=== PATIENT | female | born 1970 | race Caucasian/White ===

== ENCOUNTER 2018-10-25 01:34 | Emergency (ER) | payer OTHER, SELFPAY ==
[2018-10-25 01:36] VITALS: BP 117/73; PULSE 83; RESP 12; TEMP 36.6; O2SAT 95; BMI 29.5
--- NOTE | 2018-10-25 01:50 | EKG12_ITS ---
Test Reason : ANXIETY Blood Pressure : / mmHG Vent. Rate : 073 BPM Atrial Rate : 073 BPM P-R Int : 148 ms QRS Dur : 076 ms QT Int : 416 ms P-R-T Axes : 027 028 045 degrees QTc Int : 458 ms Normal sinus rhythm Normal ECG Confirmed by ERNST BOB ([id number]), graphic editor PERI ALONZO ([id number]) on 10/29/2018 2:10:26 PM Referred By: NAVEEN Confirmed By:JUSTINE BOB
[2018-10-25] MEDS: 0.9% Normal Saline 1,000 ML 150 ML IV (02:01)
--- NOTE | 2018-10-25 02:05 | RAD_ITS ---
HISTORY: C/O ARMS TINGLING, HEART RACING. PT UNDER STRESS. EXAM:XR Chest 1 View portable COMPARISON: None FINDINGS: EKG leads in place. Normal heart and mediastinum. Lung volumes appear normal. No vascular congestion, pleural effusion, or acute pulmonary infiltration. No pneumothorax. The bony thorax appears intact. RAD/Chest 1 View (Portable) IMPRESSION: Normal chest. at 0222 Reported and signed by: Simba Medina MD Electronically Signed: Simba Medina, at 2:21 EDT Tel , Service support ,
[2018-10-25 02:11] LABS: Absolute Lymphocyte Count 1.97 X10^3/ul (0.83-4.51); Absolute Neutrophil Count 4.1 X10^3/uL (2.0-7.7); Basophil# 0.05 X10^3/uL; Basophil% 0.7 % (0-1); Eosinophil# 0.12 X10^3/uL; Eosinophils% 1.8 % (0-5); Hematocrit 38.7 % (37-47); Hemoglobin 13.8 g/dl (12.0-15.0); Lymphocyte # 1.97 X10^3/ul (4.0); Lymphocyte % 29.1 % (19-41); Mean Corp Hgb Conc 35.7 g/gl (32-36); Mean Corpuscular Volume 89.8 fL (81-99); Mean Platelet Vol. 8.8 fl (6.2-12.0); Monocyte# 0.54 X10^3/uL; Neutrophil # 4.08 X10^3/uL (2.7-7.7); Neutrophil % 60.3 % (47-70); POSITIVE COUNT NO; POSITIVE DIFFERENTIAL NO; POSITIVE MORPHOLOGY NO; Platelet Count 312 K/mm3 (150-450); RBC Distribution Width CV 11.5 % (11.6-14.6); RBC Distribution Width SD 36.8 fl (35.1-43.9); Red Blood Count 4.31 M/mm3 (4.2-5.4); White Blood Count 6.8 K/mm3 (4.4-11.0)
[2018-10-25 02:16] LABS: D-Dimer Quantitative (DVT/PE) < 0.27 FEU/ug/m (0.27-0.49)
--- NOTE | 2018-10-25 02:19 | ED.VISSUMM ---
- ER Visit Summary Date of Service: 10/25/18 Chief Complaint: Arms tingling, heart racing History of Present Illness: The patient is a 48 F with history of anxiety and thyroid nodules. Patient states she gets panic attacks once every 2 or 3 months. Tonight around 11 PM she felt anxious. She states her heart was racing and her chest felt heavy. She did have some pain and tingling in her left arm. She took Xanax which usually helps her sleep but states symptoms did not improve tonight. She does note increased stress recently with multiple deaths in the family. No recent change in caffeine intake. Physical Examination: Vital signs unremarkable. Patient sitting upright in bed no acute distress. Head neck examination normal. Heart is regular rate and rhythm. Lung sounds are clear. Abdomen is soft nontender. Test Results: EKG is sinus at 73 with no sign of acute ischemia. Portable chest x-ray is normal. CBC and chemistry studies are normal. Troponin and d-dimer are both negative. TSH is normal at 2.68. Emergency Department Course and Treatment: Patient had taken Xanax early before arrival. She was not given any further medication while here. On repeat evaluation she is resting comfortably does feel improved. Treatment Plan: [] Disposition: Discharge Impression: Anxiety, improved This note was generated with [employer] dictation software. It may contain incorrect words, spelling, and punctuation that were not noted in review of the chart prior to signing ED Disposition - Plan for ED Patient: Disposition: Home or Assisted Living Instructions: ED Panic Attack Referrals: Aubrey Barrow DO [Primary Care Provider] - 1-2 Days if not improving
[2018-10-25 02:30] LABS: Anion Gap 8 (5-15); BUN 18 mg/dL (7-18); BUN/Creat Ratio 22.2 RATIO (10-20); Calcium,Total 8.5 mg/dL (8.5-10.1); Chloride 108 mmol/L (98-107); Creatinine, Serum 0.81 mg/dL (0.55-1.02); EST Glomerular Filtration Rate 80 mL/min (>60); Est Glom Filt Rate - Afr Amer 97 mL/min (>60); Estimated Creatinine Clearance 74.14 ml/min; Glucose 106 mg/dL (74-106); Potassium 3.8 mmol/L (3.5-5.1); Sodium Level 139 mmol/L (136-145); Thyroid Stim Hormone (TSH) 2.68 uIU/mL (0.358-3.74)
[2018-10-25 03:00] VITALS: BP 109/76; PULSE 74; RESP 14; O2SAT 95
== END 2018-10-25 03:03 | disposition home or self-care (01) ==
PROVIDERS: Emergency Provider Emergency Medicine; Family Provider Family Medicine; PCP Family Medicine
DX: F41.9 Anxiety disorder, unspecified (principal); E04.2 Nontoxic multinodular goiter
CPT/HCPCS: 71045; 80048; 84443; 84484; 85025; 85379; 93005; 96360; 99284; J7030; A4216

== ENCOUNTER → 2019-05-06 13:22 | Outpatient (CLI) | payer OTHER, SELFPAY ==
[2019-04-24 15:24] VITALS: BMI 29.0
--- NOTE | 2019-05-06 13:24 | CT_ITS ---
STUDY: CT BRAIN WITH AND WITHOUT CONTRAST REASON FOR EXAM: Female, 48 years old. ANISOCORIA RADIATION DOSAGE (If Supplied By Facility): CTDIvol = ( 44.99 ) mGy, DLP = ( 1479.73 ) mGycm TECHNIQUE: Transaxial CT imaging of the brain was performed pre and post contrast administration. The examination was performed with intravenous administration of IV Isovue 370 50. Individualized dose optimization techniques were used for this CT. COMPARISON: None. FINDINGS: Normal soft tissue structures. Normal calvarium. Normal size ventricles and extra-axial spaces for the patient's age. Normal white matter tracts of the cerebral hemispheres. Normal basal ganglia and thalami. Normal brainstem. Normal cerebellum. There is no intracranial hemorrhage. There are no findings of an acute ischemic infarction. Normal visualized paranasal sinuses. CT/Brain/Head W/WO Contrast IMPRESSION: Normal unenhanced and enhanced CT scan of the brain. Electronically Signed: Corin Penn MD at 1:23 EST , Service support ,
== END ==
PROVIDERS: Family Provider Family Medicine; PCP Family Medicine; Referring Provider Internal Medicine; Visit Provider Internal Medicine
DX: H57.02 Anisocoria (principal)
CPT/HCPCS: 70470; Q9967; A4216

== ENCOUNTER → 2020-12-02 15:59 | Outpatient (CLI) | payer OTHER, SELFPAY ==
[2020-12-02 14:56] VITALS: BMI 29.0
[2020-12-02 16:32] LABS: Absolute Lymphocyte Count 1.42 X10^3/uL (0.83-4.51); Absolute Neutrophil Count 3.6 X10^3/uL (2.0-7.7); Basophil# 0.04 X10^3/uL; Basophil% 0.7 % (0-1); Eosinophil# 0.03 X10^3/uL; Eosinophils% 0.5 % (0-5); Hematocrit 40.2 % (37-47); Hemoglobin 13.8 g/dL (12.0-15.0); Lymphocyte # 1.42 X10^3/ul (0.83-4.51); Lymphocyte % 25.9 % (19-41); Mean Corp Hgb Conc 34.3 g/dL (32-36); Mean Corpuscular Hgb 31.3 pg (27.0-32.0); Mean Corpuscular Volume 91.2 fL (81-99); Mean Platelet Vol. 9.1 fl (6.2-12.0); Monocyte# 0.39 X10^3/uL; Monocyte% 7.1 % (0-10); NRBC Flagged by Analyzer 0 % (0-5); Neutrophil # 3.58 X10^3/uL (2.7-7.7); Neutrophil % 65.4 % (47-70); Platelet Count 386 K/mm3 (150-450); RBC Distribution Width CV 11.6 % (11.6-14.6); RBC Distribution Width SD 38.5 fl (35.1-43.9); Red Blood Count 4.41 M/mm3 (4.2-5.4); White Blood Count 5.5 K/mm3 (4.4-11.0)
[2020-12-02 17:12] LABS: ALB/GLOB Ratio 1.1 RATIO (0.9-2.4); AST(SGOT) 17 U/L (15-37); Alanine Aminotransfer ALT/SGPT 20 U/L (13-56); Albumin, Serum 4.1 g/dL (3.2-5.0); Alkaline Phosphatase 45 U/L (45-117); Anion Gap 8 (5-15); BUN 8 mg/dL (7-18); BUN/Creat Ratio 9.1 RATIO (10-20); Calcium,Total 8.7 mg/dL (8.5-10.1); Chloride 106 mmol/L (98-107); Cholesterol 185 mg/dL (200); Creatinine, Serum 0.88 mg/dL (0.55-1.02); EST Glomerular Filtration Rate 73 mL/min (>60); Est Glom Filt Rate - Afr Amer 88 mL/min (>60); Globulin 3.7 g/dL (2.2-4.2); Glucose 85 mg/dL (74-106); High Density Lipoprotein 48 mg/dL; Potassium 3.6 mmol/L (3.5-5.1); Protein, Total 7.8 g/dL (6.4-8.2); Sodium Level 139 mmol/L (136-145); Thyroid Stim Hormone (TSH) 0.88 uIU/mL (0.358-3.74); Triglycerides 116 mg/dL; Very Low Density Lipoprotein 23 mg/dL (5-40)
[2020-12-02 17:43] LABS: Vitamin B12 321 pg/mL (211-911); Vitamin D,25 Hydroxy 23.6 ng/mL
== END ==
PROVIDERS: PCP Family Medicine; Referring Provider Nurse Practitioner Family; Visit Provider Nurse Practitioner Family
DX: D64.9 Anemia, unspecified (principal); F32.9 Major depressive disorder, single episode, unspecified; F41.9 Anxiety disorder, unspecified; E56.9 Vitamin deficiency, unspecified
CPT/HCPCS: 36415; 80053; 80061; 82306; 82607; 84443; 85025

== ENCOUNTER → 2020-12-18 11:49 | Outpatient (CLI) | payer OTHER, SELFPAY ==
[2020-12-02 14:56] VITALS: BMI 29.0
--- NOTE | 2020-12-18 11:51 | BI_ITS ---
MAMMOGRAPHY - BILATERAL SCREENING 3-D TOMOSYNTHESIS REASON FOR EXAM: Female, 50 years old. Z12.39 - Encounter for other screening for malignant neoplasm of breast PERTINENT HISTORY: No significant family history. TECHNIQUE: 2-D mammograms and 3-D Tomosynthesis of the breast (s) were performed. CAD was performed. COMPARISON: 08/16/2012. FINDINGS: The breast composition is of heterogeneous relatively dense fibroglandular tissue that may lower down the sensitivity of mammography Scattered benign calcifications are seen. No dense spiculated masses or suspicious microcalcifications are identified. No architectural distortion is identified. There is no skin thickening or nipple retraction. There has been no significant change since the prior study the density of the fibroglandular tissue is more than seen before I recommend ultrasound for better assessment BI/SCRN MAMM (CAD)W/KAYCEE BILAT IMPRESSION: There is relatively dense heterogeneous fibroglandular tissue that needs further assessment by ultrasound BIRADS -0. FOLLOW UP RECOMMENDATION: Yearly follow up mammogram recommended. (A) Approximately 10% of breast cancers are not detected by mammography. A normal mammogram should not delay biopsy of a clinically suspicious abnormality. Electronically Signed: Suhail Liang, at 14:24 EDT Tel , Service support ,
== END ==
PROVIDERS: PCP Family Medicine; Referring Provider Nurse Practitioner Family; Visit Provider Nurse Practitioner Family
DX: Z12.31 Encounter for screening mammogram for malignant neoplasm of breast (principal)
CPT/HCPCS: 77063; 77067

== ENCOUNTER → 2020-12-25 13:09 | Outpatient (CLI) | payer OTHER, SELFPAY ==
[2020-12-02 14:56] VITALS: BMI 29.0
--- NOTE | 2020-12-25 13:11 | US_ITS ---
STUDY: ULTRASOUND BREAST - RIGHT REASON FOR EXAM: Female, 50 years old. Abnormal screening mammogram. TECHNIQUE: Axial and longitudinal images of the RIGHT breast were performed with a high resolution ultrasound transducer. # OF IMAGES: 30 COMPARISON: Comparison is made with prior mammogram dated 12/18/2020. FINDINGS: RIGHT Breast: The upper outer aspect of the right breast was examined by ultrasound. There is a 5 mm x 5 mm x 5 mm cyst at the 9 o''clock position of the breast at 6 cm from the nipple. US/Breast Limited Unilateral IMPRESSION: 5 mm x 5 mm x 5 mm cyst is seen at 9 o''clock position of the breast 6 cm from nipple. ASSESSMENT CATEGORY: BIRADS Category 2: Benign. A letter regarding these results will be sent to the patient by the facility within 30 days. Electronically Signed: Esdras Cervantes MD at 14:34 EDT , Service support ,
== END ==
PROVIDERS: PCP Family Medicine; Referring Provider Nurse Practitioner Family; Visit Provider Nurse Practitioner Family
DX: N60.01 Solitary cyst of right breast (principal)
CPT/HCPCS: 76642

== ENCOUNTER → 2022-04-21 | Outpatient (CLI) | payer OTHER, SELFPAY ==
[2022-04-21 15:20] LABS: Absolute Lymphocyte Count 1.37 X10^3/uL (0.83-4.51); Absolute Neutrophil Count 3.5 X10^3/uL (2.0-7.7); Basophil# 0.04 X10^3/uL; Basophil% 0.8 % (0-1); Eosinophil# 0.05 X10^3/uL; Hematocrit 42.1 % (37-47); Lymphocyte # 1.37 X10^3/ul (0.83-4.51); Lymphocyte % 26.1 % (19-41); Mean Corp Hgb Conc 35.6 g/dL (32-36); Mean Corpuscular Hgb 33.2 pg (27.0-32.0); Mean Corpuscular Volume 93.1 fL (81-99); Mean Platelet Vol. 9.5 fl (6.2-12.0); Monocyte% 5.7 % (0-10); NRBC Flagged by Analyzer 0 % (0-5); Neutrophil # 3.47 X10^3/uL (2.7-7.7); Platelet Count 401 K/mm3 (150-450); RBC Distribution Width CV 11.8 % (11.6-14.6); RBC Distribution Width SD 40.3 fl (35.1-43.9); Red Blood Count 4.52 M/mm3 (4.2-5.4); White Blood Count 5.3 K/mm3 (4.4-11.0)
[2022-04-21 15:36] LABS: Vitamin B12 252 pg/mL (211-911); Vitamin D,25 Hydroxy 25.8 ng/mL
[2022-04-21 15:43] LABS: ALB/GLOB Ratio 1.1 RATIO (0.9-2.4); AST(SGOT) 15 U/L (15-37); Alanine Aminotransfer ALT/SGPT 23 U/L (13-56); Albumin, Serum 3.9 g/dL (3.2-5.0); Alkaline Phosphatase 52 U/L (45-117); Anion Gap 6 (5-15); BUN 7 mg/dL (7-18); BUN/Creat Ratio 7.9 RATIO (10-20); Calcium,Total 9.1 mg/dL (8.5-10.1); Chloride 108 mmol/L (98-107); Cholesterol 178 mg/dL (200); Creatinine, Serum 0.89 mg/dL (0.55-1.02); EST Glomerular Filtration Rate 71 mL/min (>60); Est Glom Filt Rate - Afr Amer 86 mL/min (>60); Globulin 3.7 g/dL (2.2-4.2); Glucose 96 mg/dL (74-106); High Density Lipoprotein 43 mg/dL; Protein, Total 7.6 g/dL (6.4-8.2); Sodium Level 139 mmol/L (136-145); Thyroid Stim Hormone (TSH) 0.82 uIU/mL (0.358-3.74); Triglycerides 114 mg/dL; Very Low Density Lipoprotein 23 mg/dL (5-40)
[2022-04-21 17:32] LABS: Internal QC Validated? YES +Cl - CLEAR BKGD; Pregnancy, Serum, hCG Quali. NEGATIVE Negative
== END | disposition home or self-care (01) ==
LOC: BIMLAB 12:06
PROVIDERS: PCP Family Medicine; Referring Provider Nurse Practitioner Family; Visit Provider Nurse Practitioner Family
DX: F41.9 Anxiety disorder, unspecified (principal); F32.9 Major depressive disorder, single episode, unspecified; E56.9 Vitamin deficiency, unspecified; D64.9 Anemia, unspecified; N64.4 Mastodynia
CPT/HCPCS: 36415; 80053; 80061; 82306; 82607; 84443; 84703; 85025

== ENCOUNTER 2022-05-18 09:20 | Outpatient (CLI) | payer OTHER, SELFPAY ==
--- NOTE | 2022-05-18 09:22 | BI_ITS ---
MAMMOGRAPHY - BILATERAL DIAGNOSTIC REASON FOR EXAM: Female, 51 years old bilateral breast pain. Pain resolved prior to this study. PERTINENT HISTORY: Non-contributory. TECHNIQUE: 2-D mammograms and 3-D Tomosynthesis of the breast (s) were performed. CAD was performed. COMPARISON: December 18, 2020. FINDINGS: Breast Composition: The breasts are heterogeneously dense, which may obscure small masses. There are no dominant masses or suspicious calcifications. Normal axillary lymph nodes. BI/DIAG MAMM W/CAD, BILAT IMPRESSION: Negative diagnostic mammogram. Yearly followup recommended. Yearly follow-up screening mammogram recommended. ASSESSMENT CATEGORY: BIRADS Category 2: Benign. A letter regarding these results will be sent to the patient by the facility within 30 days. FOLLOW UP RECOMMENDATION: Yearly follow up mammogram recommended. (A) Approximately 10% of breast cancers are not detected by mammography. A normal mammogram should not delay biopsy of a clinically suspicious abnormality. Electronically Signed: Timtohy Cardenas, at 10:15 EST ,
== END 2022-05-18 23:59 | disposition home or self-care (01) ==
PROVIDERS: PCP Family Medicine; Referring Provider Nurse Practitioner Family; Visit Provider Nurse Practitioner Family
DX: Z12.31 Encounter for screening mammogram for malignant neoplasm of breast (principal); N64.4 Mastodynia
CPT/HCPCS: 77062; 77066; G0279

== ENCOUNTER 2022-10-14 18:21 | Emergency (ER) | payer OTHER, SELFPAY ==
[2022-10-14 18:21] VITALS: BP 121/88; PULSE 86; RESP 16; TEMP 36.6; O2SAT 98; BMI 33.4
[2022-10-14 19:01] VITALS: O2SAT 97
--- NOTE | 2022-10-14 19:01 | EKG12_ITS ---
Test Reason : CP Blood Pressure : / mmHG Vent. Rate : 080 BPM Atrial Rate : 080 BPM P-R Int : 150 ms QRS Dur : 078 ms QT Int : 396 ms P-R-T Axes : 017 010 045 degrees QTc Int : 456 ms Normal sinus rhythm Normal ECG Confirmed by LEN BHATIA, REINALDO ([id number]), editor farm journal LEIGH ORELLANA ([id number]) on 10/17/2022 11:05:23 AM Referred By: TELLY Confirmed By:REINALDO HARRINGTON MD
--- NOTE | 2022-10-14 19:02 | EDS_ITS ---
HPI History of Present Illness Chief Complaint: Chest Pain Informant: patient Onset/Context/Timing Onset: Weeks Timing: Intermittent Quality: Positive for Tightness Narrative Narrative: Patient presents with intermittent tightness across her chest for the past couple weeks. She has a strong family history of heart disease and was concerned so she came in for evaluation. No significant shortness of breath. [facility] Medical History Anemia Back problem Dense breast tissue Migraine Pain of both breasts Tension headache UTI (urinary tract infection) Vitamin deficiency Home Medications alprazolam 0.25 mg tablet (Xanax) 0.25 mg PO DAILY PRN anxiety #20 tabs 04/21/22 [Rx Last Taken Unknown] carboxymethylcellulose-citric acid 0.75 gram capsule (Plenity (Welcome Kit)) 3 cap PO BID #540 caps 04/21/22 [Rx Last Taken Unknown] citalopram 20 mg tablet 20 mg PO DAILY #90 tabs 04/21/22 [Rx Last Taken Unknown] clotrimazole-betamethasone 1 %-0.05 % topical cream 1 applic topical BID #45 grams 04/21/22 [Rx Last Taken Unknown] omeprazole 20 mg capsule,delayed release 20 mg PO DAILY #90 caps 04/21/22 [Rx Last Taken Unknown] cholecalciferol (vitamin D3) 50 mcg (2,000 unit) capsule 50 mcg PO DAILY 04/22/22 [History Last Taken Unknown] Allergy/AdvReac Type Severity Reaction Status Date / Time Penicillins Allergy Unknown Rash Verified 04/21/22 11:01 amoxicillin Allergy Rash Verified 04/21/22 11:01 latex Allergy Rash Verified 04/21/22 11:01 Family History Other Anxiety Breast cancer CVA (cerebral vascular accident) Cancer Depression Diabetes Heart disease Surgical History history hemmorrhoid surgery Social History Smoking Status: Former smoker alcohol intake: current alcohol intake frequency: holidays/special occasions only substance use type: does not use what type of physical activity do you participate in: none ROS ROS ED Constitutional Constitutional ED: Denies chills or fever(s) Eyes Eyes: Denies discharge from eye(s) ENT ENT ED: Denies discharge from eye(s), rhinorrhea or sore throat Cardiovascular Cardiovascular: Reports chest pain; Denies palpitations Respiratory/Chest Respiratory/Chest: Denies cough or dyspnea Gastrointestinal Gastrointestinal: Denies abdominal pain, nausea or vomiting Genitourinary Genitourinary ED: Denies dysuria Musculoskeletal Musculoskeletal: Denies back pain or extremity pain Integumentary Denies Abrasions or rash Neurologic Neurologic: Denies headache(s) or weakness Psychiatric Psychiatric: Reports anxiety; Denies depression Allergic/Immunologic Allergic/Immunologic ED: Denies lip swelling or urticaria EXAM Physical Exam Const Vital Signs: 10/14/22 18:21 10/14/22 19:28 10/14/22 19:01 Temperature 97.8 F Temperature Source Temporal Pulse Rate 86 82 Respiratory Rate 16 19 H Blood Pressure 121/88 H 120/83 H Blood Pressure Mean 99 95 Pulse Ox 98 97 97 Oxygen Delivery Method Room Air Room Air Room Air 10/14/22 20:20 Temperature Temperature Source Pulse Rate 75 Respiratory Rate 17 Blood Pressure 107/72 Blood Pressure Mean 83 Pulse Ox 97 Oxygen Delivery Method Room Air Positive well nourished and well developed General Appearance ED: well developed HEENT Reports normocephalic and head/scalp atraumatic Eyes PERRL and EOMs intact bilaterally Neck supple Chest Wall inspection of chest normal and palpation of chest normal Resp normal respiratory effort and clear to auscultation bilaterally Cardio regular rate and regular rhythm GI normal to inspection, nondistended, normoactive bowel sounds Palpation: soft Extremity normal to inspection Neuro oriented x3 and no sensory deficits noted Sensorium / Orientation: alert Motor Exam: strength 5/5 throughout Psych Mood & Affect: anxious Skin no rashes or lesions noted Heart Score History: Slightly/Non-Suspicious ECG: Normal Age: >45 - <65 years Risk Factors: No Risk Factors Troponin: </= Normal Limit Score: 1 MDM MDM MDM Narrative Medical decision making narrative: Patient placed on monitoring tech. Patient given 4 baby aspirin. Labwork obtained to evaluate for leukocytosis, anemia, and electrolyte derangement. EKG obtained to evaluate for cardiac arrhythmia/ischemia. Chest x-ray obtained to evaluate for acute lung pathology, cardiac size, or mediastinal abnormality. Lab Data Attestation: I reviewed the patient's lab results. Labs: Laboratory Results - last 24 hr 10/14/22 10/14/22 10/14/22 19:01 19:01 19:01 WBC 7.4 RBC 4.60 Hgb 14.7 Hct 42.8 MCV 93.0 MCH 32.0 MCHC 34.3 RDW Std Deviation 40.0 RDW Coeff of Javier 11.8 Plt Count 321 MPV 10.2 Immature Gran % (Auto) 0.300 Neut % (Auto) 63.2 Lymph % (Auto) 27.6 Major % (Auto) 6.6 Eos % (Auto) 1.5 Baso % (Auto) 0.8 Absolute Neuts (auto) 4.7 Absolute Lymphs (auto) 2.04 Nucleated RBC % 0 Differential Comment SCANNED D-Dimer Quant (PE/DVT) 0.30 Sodium 137 Potassium 3.8 Chloride 107 Carbon Dioxide 25.0 Anion Gap 5 BUN 10 Creatinine 0.88 Estim Creat Clear Calc 65.31 Est GFR (MDRD) Af Amer 87 Est GFR (MDRD) Non-Af 72 BUN/Creatinine Ratio 11.4 Glucose 97 Calcium 9.9 Troponin I High Sens < 3 L Radiography Chest X-Ray - ED: 1 View, Read by ED Physician, Normal, Heart, Lungs and Mediastinum Diagnostic Testing: Clinical Impression(s) from Imaging Studies Chest X-Ray 10/14/22 19:06 IMPRESSION: No acute cardiopulmonary disease or interval change. Electronically Signed: Song Madden DO at 19:24 EDT Reading Location ID and State: [address] [place] [address] Tel [phone], Service support , EKG Initial EKG: Attestation: I personally reviewed and interpreted this EKG as follows: Interpretation: Sinus Rhythm (Sinus at 80 with no acute ischemia.) Differential Diagnosis Chest pain/SOB: pulmonary embolism Reason(s) PE less likely: Positive for D- Dimer negative, not tachycardic and not hypoxic, ACS ACS: Positive for no evidence of ACS based on cardiac biomarkers and EKG without ischemia and pneumothorax Reason(s) pneumothorax less likely: Positive for bilateral breath sounds and MEDICAL ADVISOR withhout PTX Treatment and Re-Evaluation :: On repeat evaluation patient resting comfortably. CBC and chemistry studies are unremarkable. Troponin is normal at less than 3 and D-dimer is normal at 0.3. Chest x-ray per my interpretation reveals no acute abnormalities. EKG reveals no ischemia. Patient advised of the test results. I did recommend she follow- up with her primary care physician, but at this time I see no evidence of ACS, pulmonary embolism, or pneumothorax. Family does raise concern about her blood pressure being higher than she normally runs. I recommended obtaining a blood pressure cuff and keeping a journal at home and reviewing this with her primary care physician at follow-up. Discharge Plan Triage Chief Complaint: Chest Pain ED Provider: Natalie Conner Dx/Rx/DC Orders Clinical Impression: Atypical chest pain Instructions: ED Chest Pain, Uncertain Cause Prescriptions: No Action omeprazole 20 mg capsule,delayed release(DR/EC) 20 mg PO DAILY Qty: 90 1RF citalopram 20 mg tablet 20 mg PO DAILY Qty: 90 3RF alprazolam [Xanax] 0.25 mg tablet 0.25 mg PO DAILY PRN (Reason: anxiety) Qty: 20 0RF clotrimazole-betamethasone 1-0.05 % cream 1 applic topical BID Qty: 45 3RF Plenity (Welcome Kit) 0.75 gram capsule 3 cap PO BID Qty: 540 3RF Rx Instructions: administer 30 min before lunch and evening meal/dinner with full glass of water cholecalciferol (vitamin D3) 50 mcg (2,000 unit) capsule 50 mcg PO DAILY Primary Care Provider: Corby Moy Referrals: Corby Moy, [Primary Care Provider] - 1 Week Disposition Disposition: Home, Self Care
--- NOTE | 2022-10-14 19:06 | RAD_ITS ---
STUDY: X-RAY CHEST REASON FOR EXAM: Female, 52 years old. Chest pain and tightness intermittently for weeks. TECHNIQUE: Single AP portable view of the chest. COMPARISON: October 25, 2018. FINDINGS: The lungs are clear and expanded. There is no demonstrated pleural abnormality. Normal size heart. Normal mediastinum and evan. Normal visualized pulmonary arteries. Normal visualized aortic arch and descending thoracic aorta. Normal visualized thoracic spine. Normal visualized ribs, clavicles, and shoulders. There is no demonstrated abnormality of the visualized soft tissue structures of the upper abdomen. RAD/Chest 1 View (Portable) IMPRESSION: No acute cardiopulmonary disease or interval change. Electronically Signed: Song Madden DO at 19:24 EDT ,
[2022-10-14] MEDS: Aspirin 81 MG TAB.CHEW 324 MG PO (19:25)
[2022-10-14 19:28] VITALS: BP 120/83; PULSE 82; RESP 19; O2SAT 97
[2022-10-14 19:30] LABS: Absolute Lymphocyte Count 2.04 X10^3/uL (0.83-4.51); Absolute Neutrophil Count 4.7 X10^3/uL (2.0-7.7); Basophil# 0.06 X10^3/uL; Basophil% 0.8 % (0-1); Differential Indicated SCAN CRITERIA MET; Eosinophil# 0.11 X10^3/uL; Eosinophils% 1.5 % (0-5); Hematocrit 42.8 % (37-47); Hemoglobin 14.7 g/dL (12.0-15.0); Lymphocyte # 2.04 X10^3/ul (0.83-4.51); Lymphocyte % 27.6 % (19-41); Mean Corp Hgb Conc 34.3 g/dL (32-36); Mean Platelet Vol. 10.2 fl (6.2-12.0); Monocyte# 0.49 X10^3/uL; Monocyte% 6.6 % (0-10); NRBC Flagged by Analyzer 0 % (0-5); Neutrophil # 4.68 X10^3/uL (2.7-7.7); Neutrophil % 63.2 % (47-70); POSITIVE COUNT YES; Platelet Count 321 K/mm3 (150-450); RBC Distribution Width CV 11.8 % (11.6-14.6); White Blood Count 7.4 K/mm3 (4.4-11.0)
[2022-10-14 20:14] LABS: Anion Gap 5 (5-15); BUN 10 mg/dL (7-18); BUN/Creat Ratio 11.4 RATIO (10-20); Calcium,Total 9.9 mg/dL (8.5-10.1); Chloride 107 mmol/L (98-107); Creatinine, Serum 0.88 mg/dL (0.55-1.02); EST Glomerular Filtration Rate 72 mL/min (>60); Est Glom Filt Rate - Afr Amer 87 mL/min (>60); Estimated Creatinine Clearance 65.31 ml/min; Glucose 97 mg/dL (74-106); Potassium 3.8 mmol/L (3.5-5.1); Sodium Level 137 mmol/L (136-145); Troponin-I HS < 3 pg/mL (3.0-54.0)
[2022-10-14 20:15] LABS: Differential Comment SCANNED
[2022-10-14 20:20] VITALS: BP 107/72; PULSE 75; RESP 17; O2SAT 97
[2022-10-14 21:05] VITALS: BP 123/84; PULSE 76; RESP 12; O2SAT 97
== END 2022-10-14 21:06 | disposition home or self-care (01) ==
PROVIDERS: Emergency Provider Emergency Medicine; PCP Family Medicine; Visit Provider Emergency Medicine
DX: R07.89 Other chest pain (principal); Z87.891 Personal history of nicotine dependence
CPT/HCPCS: 71045; 80048; 84484; 85025; 85379; 93005; 99284

== ENCOUNTER 2022-12-19 10:54 | Emergency (ER) | payer OTHER, SELFPAY ==
[2022-12-19 10:54] VITALS: BP 112/69; PULSE 92; RESP 18; TEMP 36.3; O2SAT 99; BMI 30.9
--- NOTE | 2022-12-19 11:08 | VDLE_ITS ---
Reason For Study: Rt Leg Pain RIGHT LEFT GSV is normal. CFV is compressible, spontaneous, phasic, CFV is compressible, spontaneous, phasic, competent, and demonstrates normal competent and demonstrates normal augmentation. augmentation. FV is compressible, spontaneous, phasic, competent and demonstrates normal augmentation. POP V is compressible, spontaneous, phasic, competent and demonstrates normal augmentation. T/P Trunk is compressible. Acute deep vein thrombosis is noted in the PTV. It is dilated and NONCOMPRESSIBLE. Acute deep vein thrombosis is noted in the Per V. It is dilated and NONCOMPRESSIBLE. Procedure This is a venous duplex using B-mode, color flow and spectral Doppler. Exam performed portable in ED. The exam was diagnostic. A preliminary report was called and/or faxed to Dr. Cortes. VL/Venous Duplex US, Unilateral Interpretation Summary Acute deep venous thrombosis right posterior tibial and peroneal veins. Patent and compressible right great saphenous vein. Normal flow patterns left common femoral vein. Ordering Physician: Wil Cortes Referring Physician: Jeison Moy M.D. Performed By: Dennis Morales RVT
--- NOTE | 2022-12-19 11:09 | ED.VIS.LOWEX ---
HPI History of Present Illness Chief Complaint: Lower Extremity Injury Informant: patient Narrative Narrative: Patient presents concerned she may have developed a DVT in her right leg. She has a foot fracture and a tall walking boot on, and she just drove with family to [place] and back, and in route she developed swelling all the way up to her knee, and she has been having cramping in her calf for the last several days. The swelling is better now, but the cramping is still there. She has no chest pain, shortness of breath, palpitations, lightheadedness or syncope, and she has never had a history of DVT or PE in the past she takes no aspirin or anticoagulants for any reason. [facility] Medical History Anemia Back problem Dense breast tissue Migraine Pain of both breasts Tension headache UTI (urinary tract infection) Vitamin deficiency Home Medications alprazolam 0.25 mg tablet (Xanax) 0.25 mg PO DAILY PRN anxiety #20 tabs 04/21/22 [Rx Last Taken Unknown] carboxymethylcellulose-citric acid 0.75 gram capsule (Plenity (Welcome Kit)) 3 cap PO BID #540 caps 04/21/22 [Rx Last Taken Unknown] citalopram 20 mg tablet 20 mg PO DAILY #90 tabs 04/21/22 [Rx Last Taken Unknown] clotrimazole-betamethasone 1 %-0.05 % topical cream 1 applic topical BID #45 grams 04/21/22 [Rx Last Taken Unknown] omeprazole 20 mg capsule,delayed release 20 mg PO DAILY #90 caps 04/21/22 [Rx Last Taken Unknown] cholecalciferol (vitamin D3) 50 mcg (2,000 unit) capsule 50 mcg PO DAILY 04/22/22 [History Last Taken Unknown] apixaban 5 mg (74 tabs) tablets in a dose pack (Eliquis DVT-PE Treat 30D Start) 5 mg PO BID #74 tabs 12/19/22 [Rx Last Taken Unknown] Allergy/AdvReac Type Severity Reaction Status Date / Time Penicillins Allergy Unknown Rash Verified 04/21/22 11:01 amoxicillin Allergy Rash Verified 04/21/22 11:01 latex Allergy Rash Verified 04/21/22 11:01 Family History Other Anxiety Breast cancer CVA (cerebral vascular accident) Cancer Depression Diabetes Heart disease Surgical History history hemmorrhoid surgery Social History Smoking Status: Former smoker alcohol intake: current alcohol intake frequency: holidays/special occasions only substance use type: does not use what type of physical activity do you participate in: none ROS ROS ED Constitutional Constitutional ED: Denies chills or fever(s) Cardiovascular Cardiovascular: Denies chest pain, lightheadedness, palpitations, racing heartbeat or syncope Respiratory/Chest Respiratory/Chest: Denies dyspnea or dyspnea on exertion Musculoskeletal Musculoskeletal: Reports as per HPI, extremity pain and other Details: RLE swelling ; Denies neck pain Integumentary Denies Abrasions, rash or wounds Neurologic Neurologic: Denies paresthesias or weakness EXAM Physical Exam Const Vital Signs: 12/19/22 10:54 Temperature 97.3 F L Temperature Source Temporal Pulse Rate 92 Respiratory Rate 18 Blood Pressure 112/69 Blood Pressure Mean 83 Pulse Ox 99 Oxygen Delivery Method Room Air Positive well nourished and well developed General Appearance ED: well developed and NAD Neck full ROM and supple Back/Spine normal ROM and normal to inspection Extremity normal to inspection and full ROM Extremity Narrative: There is some mild calf tenderness no palpable cords, there is maybe a trace amount of edema in the ankle, but grossly no asymmetry in the calves. No tenderness in the popliteal space or the thighs. Neurovascular intact distally. Neuro oriented x3, no focal motor deficits and no sensory deficits noted Sensorium / Orientation: alert Psych mental status grossly normal and thought process normal Skin no wounds Rashes: no rashes MDM MDM MDM Narrative Medical decision making narrative: Obtained duplex ultrasound of the right lower extremity, discussed with the prosthetics lab technician preliminary interpretation is that it shows 2 small DVTs 1 in the posterior tibial vein and one in the peroneal vein both distal to the trifurcation. Discussed with vascular Dr. Ibarra. Agrees this is a provoked DVT and recommends 8-12 weeks of anticoagulation given that she is symptomatic, and can follow-up with PCP or him. Given 24-hour dose of Lovenox here, so is that she can fill the prescription and start it in the morning tomorrow. Management Discussion w/another healthcare provider: Grocery Cashier Discharge Plan Triage Chief Complaint: Lower Extremity Injury ED Provider: Wil Cortes Dx/Rx/DC Orders Clinical Impression: Deep vein thrombosis (DVT) of tibial vein of right lower extremity Instructions: DVT Dc Prescriptions: New Eliquis DVT-PE Treat 30D Start 5 mg (74 tabs) tablets,dose pack 5 mg PO BID Qty: 74 0RF Rx Instructions: use as directed No Action omeprazole 20 mg capsule,delayed release(DR/EC) 20 mg PO DAILY Qty: 90 1RF citalopram 20 mg tablet 20 mg PO DAILY Qty: 90 3RF alprazolam [Xanax] 0.25 mg tablet 0.25 mg PO DAILY PRN (Reason: anxiety) Qty: 20 0RF clotrimazole-betamethasone 1-0.05 % cream 1 applic topical BID Qty: 45 3RF Plenity (Welcome Kit) 0.75 gram capsule 3 cap PO BID Qty: 540 3RF Rx Instructions: administer 30 min before lunch and evening meal/dinner with full glass of water cholecalciferol (vitamin D3) 50 mcg (2,000 unit) capsule 50 mcg PO DAILY Primary Care Provider: Corby Moy Referrals: Corby Moy DO [Primary Care Provider] - Jose Ibarra MD [Med Staff - Active Staff] - None (in several weeks (before 1 month), or may follow up with your doctor, whichever you choose) Disposition Disposition: Home, Self Care
[2022-12-19] MEDS: Enoxaparin 120 MG/0.8 ML Syringe SC (12:06)
== END 2022-12-19 12:35 | disposition home or self-care (01) ==
LOC: ED 12:08
PROVIDERS: Emergency Provider Emergency Medicine; PCP Family Medicine; Visit Provider Emergency Medicine
DX: I82.441 Acute embolism and thrombosis of right tibial vein (principal); I82.451 Acute embolism and thrombosis of right peroneal vein; Z87.891 Personal history of nicotine dependence
CPT/HCPCS: 93971; 96372; 99282

== ENCOUNTER → 2023-01-03 | Outpatient (CLI) | payer OTHER, SELFPAY ==
[2023-01-03 12:22] LABS: Absolute Lymphocyte Count 1.16 X10^3/uL (0.83-4.51); Absolute Neutrophil Count 3.4 X10^3/uL (2.0-7.7); Basophil# 0.05 X10^3/uL; Eosinophil# 0.13 X10^3/uL; Eosinophils% 2.5 % (0-5); Hematocrit 40.6 % (37-47); Hemoglobin 13.8 g/dL (12.0-15.0); Lymphocyte # 1.16 X10^3/ul (0.83-4.51); Lymphocyte % 22.7 % (19-41); Mean Corpuscular Hgb 32.4 pg (27.0-32.0); Mean Corpuscular Volume 95.3 fL (81-99); Mean Platelet Vol. 10.3 fl (6.2-12.0); Monocyte# 0.33 X10^3/uL; Monocyte% 6.5 % (0-10); NRBC Flagged by Analyzer 0 % (0-5); Neutrophil # 3.41 X10^3/uL (2.7-7.7); Neutrophil % 66.9 % (47-70); Platelet Count 402 K/mm3 (150-450); RBC Distribution Width CV 11.8 % (11.6-14.6); RBC Distribution Width SD 40.9 fl (35.1-43.9); Red Blood Count 4.26 M/mm3 (4.2-5.4); White Blood Count 5.1 K/mm3 (4.4-11.0)
== END | disposition home or self-care (01) ==
LOC: BIMLAB 09:53
PROVIDERS: PCP Family Medicine; Visit Provider Family Medicine
DX: N92.0 Excessive and frequent menstruation with regular cycle (principal)
CPT/HCPCS: 36415; 85025

== ENCOUNTER 2023-01-31 09:59 | Emergency (ER) | payer OTHER, SELFPAY ==
[2023-01-31 10:00] VITALS: PULSE 104; RESP 18; TEMP 36.3; O2SAT 98
--- NOTE | 2023-01-31 10:25 | VDLE_ITS ---
Reason For Study: Bilateral calf pain RIGHT LEFT GSV is normal. GSV is normal. CFV is compressible, spontaneous, phasic, CFV is compressible, spontaneous, phasic, competent and demonstrates normal competent, and demonstrates normal augmentation. augmentation. FV is compressible, spontaneous, phasic, FV is compressible, spontaneous, phasic, competent and demonstrates normal competent and demonstrates normal augmentation. augmentation. POP V is compressible, spontaneous, phasic, POP V is compressible, spontaneous, phasic, competent and demonstrates normal competent and demonstrates normal augmentation. augmentation. T/P Trunk is compressible. T/P Trunk is compressible. Acute deep vein thrombosis is noted in the PTV is compressible. PTV. It is dilated and NONCOMPRESSIBLE. LT PerV is compressible. Acute deep vein thrombosis is noted in the Per V. It is dilated and NONCOMPRESSIBLE. Procedure This is a venous duplex using B-mode, color flow and spectral Doppler. Exam performed portable in ED. Compared to 12/19/22, no significant change. A preliminary report was called and/or faxed to [facility]HMO[facility]. VL/Venous Duplex US - Kirk Extrem Interpretation Summary Deep venous thrombosis right posterior tibial and peroneal veins. No significan t change from December 19, 2022 No evidence for acute deep venous thrombosis left lower extremity Patent and compressible bilateral great saphenous veins Ordering Physician: Rafael Yusuf Referring Physician: Jeison Moy M.D. Performed By: Omayra Nichols RVT
--- NOTE | 2023-01-31 10:26 | EDS_ITS ---
HPI History of Present Illness Chief Complaint: Lower Extremity Injury Informant: patient Narrative Narrative: Reports bilateral calf cramping worse in the last 3 to 4 days. She had a right distal leg DVT December 19 currently on Eliquis twice a day with no missed doses. She had a foot fracture on the right side November 28 was wearing walking boot and had by car prior to her DVT. Last 4 days mild cough. No hemoptysis. No fevers or headaches. Sick contacts. She looked online due to her symptoms and due to bilateral calf pain concerns for progression. Denies any dyspnea. Foot doctor is Dr. Castro. She is currently not wearing her walking boot and is able to ambulate. She states supposed to wear it for another month. Prior similar symptoms: Yes [facility] Medical History Anemia Back problem Dense breast tissue Migraine Pain of both breasts Tension headache UTI (urinary tract infection) Vitamin deficiency Home Medications alprazolam 0.25 mg tablet (Xanax) 0.25 mg PO DAILY PRN anxiety #20 tabs 04/21/22 [Rx Last Taken Unknown] carboxymethylcellulose-citric acid 0.75 gram capsule (Plenity (Welcome Kit)) 3 cap PO BID #540 caps 04/21/22 [Rx Last Taken Unknown] citalopram 20 mg tablet 20 mg PO DAILY #90 tabs 04/21/22 [Rx Last Taken Unknown] clotrimazole-betamethasone 1 %-0.05 % topical cream 1 applic topical BID #45 grams 04/21/22 [Rx Last Taken Unknown] omeprazole 20 mg capsule,delayed release 20 mg PO DAILY #90 caps 04/21/22 [Rx Last Taken Unknown] cholecalciferol (vitamin D3) 50 mcg (2,000 unit) capsule 50 mcg PO DAILY 04/22/22 [History Last Taken Unknown] apixaban 5 mg (74 tabs) tablets in a dose pack (Eliquis DVT-PE Treat 30D Start) 5 mg PO BID #74 tabs 12/19/22 [Rx Last Taken Unknown] apixaban 5 mg tablet (Eliquis) 5 mg PO BID #60 tabs 01/24/23 [Rx Last Taken Unknown] Allergy/AdvReac Type Severity Reaction Status Date / Time Penicillins Allergy Unknown Rash Verified 01/31/23 10:00 amoxicillin Allergy Rash Verified 01/31/23 10:00 latex Allergy Rash Verified 01/31/23 10:00 Family History Other Anxiety Breast cancer CVA (cerebral vascular accident) Cancer Depression Diabetes Heart disease Surgical History history hemmorrhoid surgery Social History Smoking Status: Former smoker alcohol intake: current alcohol intake frequency: holidays/special occasions only substance use type: does not use what type of physical activity do you participate in: none ROS ROS ED Constitutional Constitutional ED: Denies chills, fever(s) or sweats Eyes Eyes: Denies change in vision ENT ENT ED: Denies dysphagia or sore throat Cardiovascular Cardiovascular: Denies chest pain, leg edema, palpitations or racing heartbeat Respiratory/Chest Respiratory/Chest: Denies cough, dyspnea or dyspnea on exertion Gastrointestinal Gastrointestinal: Denies abdominal pain, diarrhea, nausea or vomiting Genitourinary Genitourinary ED: Denies dysuria, hematuria or urinary frequency Musculoskeletal Musculoskeletal: Reports extremity pain; Denies back pain or neck pain Integumentary Denies rash or wounds Neurologic Neurologic: Denies headache(s), paresthesias or weakness EXAM Physical Exam Const Vital Signs: 01/31/23 10:00 01/31/23 11:30 Temperature 97.4 F L 97.8 F Temperature Source Temporal Pulse Rate 104 H 74 Respiratory Rate 18 14 Blood Pressure 134/76 H Pulse Ox 98 100 Oxygen Delivery Method Room Air Positive well nourished and well developed General Appearance ED: well developed and NAD HEENT Reports moist mucous membranes normocephalic and atraumatic Eyes PERRL, EOMs intact bilaterally and conjunctivae normal General Eye ED: Yes normal appearance of both eyes Neck no lymphadenopathy and supple General: Negative for tenderness Chest Wall Chest: Negative for tenderness Resp normal respiratory effort and normal air movement Effort and Inspection: symmetric chest movement; Negative for respiratory distress Cardio regular rate, regular rhythm and no murmurs Peripheral Pulses: pulses 2+ throughout GI normal to inspection, nondistended, normoactive bowel sounds and non-tender Palpation: Negative for guarding or rebound tenderness present Back/Spine no CVA tenderness and no thoracic nor lumbar tenderness Extremity normal to inspection Extremity Narrative: No swelling, no calf tenderness on exam no medial thigh tenderness. Distal pulses are intact. General Extremety ED: Negative for edema or tenderness General Extremity: Negative for edema Neuro oriented x3 and no sensory deficits noted Sensorium / Orientation: awake and alert Skin no rashes or lesions noted and no wounds MDM MDM MDM Narrative Medical decision making narrative: Interventions / MDM: Differential diagnosis: Muscle cramps. Viral syndrome Diagnosis considered but do not suspect: Progressive DVT, ultrasounds negative for this. My EKG interpretation: N/A Imaging independently reviewed and interpreted by myself: N/A External documents reviewed: N/A Test considered but not ordered:N/A ED course: Patient concern for progressive DVTs with her recent DVT she has been compliant with her Eliquis. Ultrasound both lower extremities are negative. With her cough symptoms no hemoptysis discussed likely viral syndrome. She is no respiratory distress not hypoxic. She is reassured. Should continue Eliquis. Outpatient follow-up. All questions were answered. Re-evaluation: stable Disposition discussed with patient/family/significant other: Patient Case discussed with consulting clinician: N/A This note was generated with [employer] dictation software. It may contain incorrect words, spelling, and punctuation that were not noted in checking the note before signing. Radiography Diagnostic Testing: Clinical Impression(s) from Imaging Studies Venous Doppler Study 01/31/23 10:25 Interpretation Summary Deep venous thrombosis right posterior tibial and peroneal veins. No significant change from December 19, 2022 No evidence for acute deep venous thrombosis left lower extremity Patent and compressible bilateral great saphenous veins Ordering Physician: Rafael Yusuf Referring Physician: Jeison Moy M.D. Performed By: Omayra Nichols RVT Discharge Plan Triage Chief Complaint: Lower Extremity Injury ED Provider: Rafael Yusuf Dx/Rx/DC Orders Clinical Impression: Viral URI with cough, Bilateral calf pain Instructions: ED Muscle Strain, Extremity, ED URI, Viral, No Abx (Adult) Prescriptions: No Action omeprazole 20 mg capsule,delayed release(DR/EC) 20 mg PO DAILY Qty: 90 1RF citalopram 20 mg tablet 20 mg PO DAILY Qty: 90 3RF alprazolam [Xanax] 0.25 mg tablet 0.25 mg PO DAILY PRN (Reason: anxiety) Qty: 20 0RF clotrimazole-betamethasone 1-0.05 % cream 1 applic topical BID Qty: 45 3RF Plenity (Welcome Kit) 0.75 gram capsule 3 cap PO BID Qty: 540 3RF Rx Instructions: administer 30 min before lunch and evening meal/dinner with full glass of water cholecalciferol (vitamin D3) 50 mcg (2,000 unit) capsule 50 mcg PO DAILY Eliquis 5 mg tablet 5 mg PO BID Qty: 60 1RF Eliquis DVT-PE Treat 30D Start 5 mg (74 tabs) tablets,dose pack 5 mg PO BID Qty: 74 0RF Rx Instructions: use as directed Primary Care Provider: Corby Moy Referrals: Corby Moy, [Primary Care Provider] - 1 Week Activity Restrictions/Additional Instructions: Bilateral ultrasound lower extremity stable blood clot from the right lower extremity. No changes or progression. You have a viral upper respiratory symptoms. Continue your Eliquis twice a day as prescribed. Follow-up with your doctor. Disposition Disposition: Home, Self Care Discharge Date/Time: 01/31/23 11:40
[2023-01-31 11:30] VITALS: BP 134/76; PULSE 74; RESP 14; TEMP 36.6; O2SAT 100; BMI 32.5
== END 2023-01-31 11:40 | disposition home or self-care (01) ==
PROVIDERS: Emergency Provider Emergency Medicine; PCP Family Medicine; Visit Provider Emergency Medicine
DX: M79.661 Pain in right lower leg (principal); J06.9 Acute upper respiratory infection, unspecified; Z87.891 Personal history of nicotine dependence; Z79.01 Long term (current) use of anticoagulants; M79.662 Pain in left lower leg; Z86.718 Personal history of other venous thrombosis and embolism
CPT/HCPCS: 93970; 99282

== ENCOUNTER → 2023-03-29 | Outpatient (CLI) | payer OTHER, SELFPAY ==
--- NOTE | 2023-03-29 13:56 | VDLE_ITS ---
Reason For Study: Right leg swelling RIGHT LEFT GSV is normal. CFV is compressible, spontaneous, phasic, CFV is compressible, spontaneous, phasic, competent, and demonstrates normal competent and demonstrates normal augmentation. augmentation. FV is compressible, spontaneous, phasic, competent and demonstrates normal augmentation. POP V is compressible, spontaneous, phasic, competent and demonstrates normal augmentation. T/P Trunk is compressible. PTV is compressible. RT PerV is compressible. Procedure This is a venous duplex using B-mode, color flow and spectral Doppler. Exam performed in department. Compared to 01/31/23. A preliminary report was called and/or faxed to Dr. Moy. VL/Venous Duplex US, Unilateral Interpretation Summary There is no evidence of right lower extremity deep vein thrombosis. Right great saphenous vein appears patent and compressible segmentally. Normal flow patterns left common f emoral vein Resolution of the deep venous thrombosis noted January 31, 2023 on the right Ordering Physician: Corby Moy Referring Physician: Corby Moy Performed By: Omayra Nichols RVT
== END | disposition home or self-care (01) ==
LOC: CVS 13:55
PROVIDERS: PCP Family Medicine; Referring Provider Family Medicine; Visit Provider Family Medicine
DX: M79.89 Other specified soft tissue disorders (principal); I82.409 Acute embolism and thrombosis of unspecified deep veins of unspecified lower extremity
CPT/HCPCS: 93971

== ENCOUNTER 2023-08-25 07:40 | Emergency (ER) | payer OTHER, SELFPAY ==
[2023-08-25 07:41] VITALS: BP 130/82; PULSE 103; RESP 16; TEMP 36.2; O2SAT 99; BMI 33.5
--- NOTE | 2023-08-25 08:02 | VDLE_ITS ---
Reason For Study: RLE Pain RIGHT LEFT GSV is normal. CFV is compressible, spontaneous, phasic, CFV is compressible, spontaneous, phasic, competent, and demonstrates normal competent and demonstrates normal augmentation. augmentation. FV is compressible, spontaneous, phasic, competent and demonstrates normal augmentation. POP V is compressible, spontaneous, phasic, competent and demonstrates normal augmentation. T/P Trunk is compressible. PTV is compressible. RT PerV is compressible. Procedure This is a venous duplex using B-mode, color flow and spectral Doppler. Exam performed portable in ED. The exam was diagnostic. A preliminary report was called and/or faxed to Dr. Yoo. VL/Venous Duplex US, Unilateral Interpretation Summary Deep veins of the right lower extremity are patent and compressible segmentally . There is no evidence of right lower extremity deep vein thrombosis. The right great sapheno us vein appears patent and compressible segmentally. Ordering Physician: Roberto Yoo Referring Physician: Jeison Moy Performed By: Dennis Morales RVT
--- NOTE | 2023-08-25 08:03 | EDS_ITS ---
HPI History of Present Illness HPI Narrative: 32-year-old female history of prior right lower extremity DVT after having a broken foot and travel. She was on Eliquis at that time. She is off all blood thinners now. She states she is feeling throbbing in her right lower leg. Denies any fall injury or trauma. She has never had surgery to the leg. Denies other complaints. No chest pain. No shortness of breath. Chief Complaint: Lower Extremity Injury Informant: patient Occured/Mechanism Mechanism/Context: No injury and No blunt trauma Onset/Context/Timing Onset: Days Context: Gradual Onset Timing: Intermittent Maximum Severity: Mild Associated Symptoms Associated Symptoms: Negative for Parasthesia, Weakness or Loss of Funtion Narrative Narrative: 52-year-old prior history of right lower leg DVT. Feeling throbbing in her right leg. Prior similar symptoms: Yes Recent Illness/Hospitalization: No PFSH PFSH Medical History Anemia Back problem Dense breast tissue Migraine Pain of both breasts Tension headache UTI (urinary tract infection) Vitamin deficiency Home Medications alprazolam 0.25 mg tablet (Xanax) 0.25 mg PO DAILY PRN anxiety #20 tabs 04/21/22 [Rx Last Taken Unknown] citalopram 20 mg tablet 20 mg PO DAILY #90 tabs 04/21/22 [Rx Last Taken Unknown] Allergy/AdvReac Type Severity Reaction Status Date / Time Penicillins Allergy Unknown Rash Verified 08/25/23 07:41 amoxicillin Allergy Rash Verified 08/25/23 07:41 latex Allergy Rash Verified 08/25/23 07:41 Family History Other Anxiety Breast cancer CVA (cerebral vascular accident) Cancer Depression Diabetes Heart disease Surgical History history hemmorrhoid surgery Social History Smoking Status: Former smoker alcohol intake: current alcohol intake frequency: holidays/special occasions only substance use type: does not use what type of physical activity do you participate in: none ROS ROS ED ROS Narrative Denies recent illness. Review of Systems ROS Unobtainable: Denies due to encephalopathy Constitutional Constitutional ED: Denies chills or fever(s) Eyes Eyes: Denies blurry vision ENT ENT ED: Denies ear pain Cardiovascular Cardiovascular: Denies chest pain Respiratory/Chest Respiratory/Chest: Denies cough Gastrointestinal Gastrointestinal: Denies abdominal pain Genitourinary Genitourinary ED: Denies dysuria Musculoskeletal Musculoskeletal: Denies arthralgias Integumentary Denies abscess Neurologic Neurologic: Denies headache(s) Psychiatric Psychiatric: Denies anxiety Endocrine Endocrinology: Denies polydipsia Hematologic/Lymphatic Hematologic/Lymphatic: Denies easy bleeding, easy bruising or lymphadenopathy Allergic/Immunologic Allergic/Immunologic ED: Denies mouth swelling, tongue swelling or urticaria EXAM Physical Exam Narrative Exam Narrative: Well-appearing female no acute distress. Vital signs stable afebrile. Pulse ox 9 9% on room air no hypoxia. H EENT exam unremarkable. Moist extremities. Lungs clear to auscultation bilaterally. Heart regular rhythm rate about 100 no murmur. Chest wall nontender. Abdomen soft nontender. Moving all 4 extremities. Neurovascularly intact. Specifically her right leg normal in appearance. No swelling nor edema. Full flexion extension at the right knee, hip and ankle. Normal dorsi plantarflexion. Palpable DP pulse. Warm to the touch. Normal motor strength and sensation. Symmetrical to the other leg. Patient has no calf pain to palpation, edema or cords. Neurologically she is awake and alert no focal motor deficits. Const Vital Signs: 08/25/23 07:41 Temperature 97.2 F L Temperature Source Temporal Pulse Rate 103 H Respiratory Rate 16 Blood Pressure 130/82 H Blood Pressure Mean 98 Pulse Ox 99 Oxygen Delivery Method Room Air Positive well nourished and well developed; Negative for cachectic, contractures or unkempt General Appearance ED: well developed; Negative for unkempt, cachectic or contractures Nutritional Appearance: Negative for cachectic HEENT Reports moist mucous membranes normocephalic and atraumatic; Negative for trauma or tenderness Eyes PERRL General Eye ED: Negative for other Neck full ROM and supple Thyroid: Negative for tender Lymph Lymphatic: Negative for other Chest Wall inspection of chest normal and palpation of chest normal Chest: Negative for other Resp normal respiratory effort, no retractions and clear to auscultation bilaterally Effort and Inspection: Negative for pain with movement Auscultation: Negative for rales, rhonchi, wheezes or diminished lung sounds Cardio regular rate, regular rhythm, S1 normal heart sound, S2 normal heart sound and no murmurs Rate: Negative for bradycardia or tachycardic Rhythm: Negative for abnormal rhythm Bruits: Negative for other GI non-tender, non-distended and no masses Inspection: Negative for abdominal distention Auscultation: normoactive bowel sounds Palpation: soft; Negative for tender, guarding or rebound tenderness present Bladder / Kidney Exam: No other Back/Spine no CVA tenderness General Back: Negative for CVA tenderness Cervical Spine: Negative for cervical spine tenderness Thoracic Spine / Upper Back: Negative for thoracic spinal tenderness Lumbar Spine / Lower Back: Negative for lumbar spinal tenderness Extremity normal to inspection and full ROM General Extremety ED: Negative for cyanosis or edema General Extremity: Negative for cyanosis or edema Neuro oriented x3, CN's II-XII intact bilaterally, moves all extremities and no sensory deficits noted Sensorium / Orientation: alert, oriented to person, oriented to place and oriented to time; Negative for orientation impaired, confused, lethargic or stuporous Motor Exam: strength 5/5 throughout; Negative for general weakness or strength abnormal Psych mental status grossly normal Appearance: Negative for unkempt Speech: No other Mood & Affect: Negative for anxious Skin no wounds Lesions: no lesions Rashes: no rashes Trauma: Negative for abrasion or laceration MDM MDM MDM Narrative Medical decision making narrative: 52-year-old female history of prior DVT in her right leg. Having throbbing in the right leg. Ultrasound being obtained. Her exam is normal. She has a strong DP pulse. Normal strength and sensation. Noninvasive study of the right lower extremity shows no DVT per the personnel and payroll technician. Repeat exam the patient 9:09 AM is unchanged and normal. She will be discharged home. We discussed her normal test result. Discharge Plan Triage Chief Complaint: Lower Extremity Injury ED Provider: Roberto Yoo Dx/Rx/DC Orders Clinical Impression: History of deep vein thrombosis, Acute leg pain Prescriptions: No Action citalopram 20 mg tablet 20 mg PO DAILY Qty: 90 3RF alprazolam [Xanax] 0.25 mg tablet 0.25 mg PO DAILY PRN (Reason: anxiety) Qty: 20 0RF Primary Care Provider: Corby Moy Referrals: Corby Moy, DO [Primary Care Provider] - As Needed Activity Restrictions/Additional Instructions: Your leg exam is normal. The ultrasound showed no signs of blood clot. Follow-up with your doctor as needed. Disposition Disposition: Home, Self Care
--- OUTSIDE RECORDS SUMMARY | 2023-08-25 08:20 | XMS RPT_ITS | CCD ---
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 Name Role Phone Curtis Moy DO Primary Care Provider CURTIS MOY Primary Care Unavailable CURTIS MOY Primary Care Unavailable CURTIS MOY Primary Care Unavailable RAJESH LIN Referring Unavailable CURTIS MOY Primary Care Unavailable CURTIS MOY Primary Care Unavailable Allergies Allergy Classification Reported Allergen(s) Allergy Type Date of Onset Reaction(s) Facility (5 sources) Amoxicillin; Translations: [AMOXICILLIN] Drug Allergy 08-21-2008 [facility] (5 sources) Grass pollen; Translations: [GRASS POLLEN] Propensity to adverse reactions 10-26-2005 [facility] Work Phone: (5 sources) Latex; Translations: [LATEX] Propensity to adverse reactions 10-21-2005 [facility] Work Phone: (5 sources) Penicillins; Translations: [PENICILLINS] Drug Allergy 08-21-2008 [facility] Medications Current Medications Medication Drug Class(es) Dates Sig (Normalized) Sig (Original) doxycycline hyclate 100 mg oral tablet (2 sources) Tetracycline-clas s Drug Start: 02-17-2023 End: 02-24-2023 take 1 tablet by mouth twice daily doxycycline (VIBRA-TABS) 100 mg tablet Take 1 tablet by mouth twice daily for 7 days. 14 tablet 0 02/17/2023 02/24/2023 Active Completed/Discontinued Medications Medication Drug Class(es) Dates Sig (Normalized) Sig (Original) [id number] 200 actuat albuterol 0.09 mg/actuat metered dose inhaler (3 sources) beta2-Adrenergic Agonist Start: 02-06-2019 End: 12-01-2022 take 2 puff(s) by inhalation every six hours as needed albuterol HFA (PROAIR HFA) 90 mcg/actuation inhaler Inhale 2 Puffs as instructed every 6 hours as needed. 1 Inhaler 0 02/06/2019 12/01/2022 Discontinued Problems Active Problems Problem Classification Problem Date Documented Da te Episodic/Chronic Anxiety disorders (4 sources) Anxiety state; Translations: [Generalized anxiety disorder] Onset: 12-07-2005 12-07-2005 Chronic Fracture of lower limb (1 source) Closed fracture of first metatarsal bone ; Translations: [Nondisplaced fracture of first metatarsal bone, right foot, initial encounter for closed fracture] Episodic Nonspecific chest pain (1 source) Tight chest; Translations: [Other chest pain] Episodic Other connective tissue disease (1 source) Pain in right foot; Translations: [Pain in right foot] Episodic Other upper respiratory disease (1 source) Chronic rhinitis; Translations: [Unspecified sinusitis (chronic)] 02-17-2023 Chronic Other upper respiratory infections (1 source) Chronic sinusitis; Translations: [Chronic sinusitis, unspecified] Chronic Thyroid disorders (12 sources) Goiter; Translations: [Nontoxic goiter, unspecified] Onset: 12-13-2016 12-13-2016 Chronic Past or Other Problems Problem Classification Problem Date Documented Da te Episodic/Chronic Hemorrhoids (4 sources) Hemorrhoids; Translations: [Unspecified hemorrhoids] Onset: 04-11-2012 04-11-2012 Episodic Other connective tissue disease (1 source) Pain in right foot; Translations: [Foot pain, right] Onset: 12-01-2022 Episodic Results Test Name Value Interpretation Reference Range Facil ity Vital Signs Date Time Vital Sign Value Performing Clinician Faci lity 02-17-2023 15:21-0400 Body temperature 98.29 [degF] Joslyn Plaza APRN.CNP Work Phone: [facility] 02-17-2023 15:21-0400 Body weight 88.81 kg Joslyn Plaza APRN.CNP Work Phone: [facility] 02-17-2023 15:21-0400 Diastolic blood pressure 80 mm[Hg] Joslyn Plaza APRN.CNP Work Phone: [facility] 02-17-2023 15:21-0400 Heart rate 85 /min Joslyn Plaza SENIOR REGULATORY AFFAIRS SPECIALIST.PETAL CUTTER Work Phone: [facility] 02-17-2023 15:21-0400 Respiratory rate 18 /min Joslyn Plaza SENIOR REGULATORY AFFAIRS SPECIALIST.PETAL CUTTER Work Phone: [facility] 02-17-2023 15:21-0400 SaO2% (BldA) [Mass fraction] 98 % Joslyn Plaza SENIOR REGULATORY AFFAIRS SPECIALIST.PETAL CUTTER Work Phone: [facility] 02-17-2023 15:21-0400 Systolic blood pressure 112 mm[Hg] Joslyn Plaza SENIOR REGULATORY AFFAIRS SPECIALIST.PETAL CUTTER Work Phone: [facility] 12-01-2022 11:05-0400 Body temperature 99 [degF] Rajesh Lin MD Work Phone: [facility] 12-01-2022 11:05-0400 Diastolic blood pressure 80 mm[Hg] Rajesh Lin MD Work Phone: [facility] 12-01-2022 11:05-0400 Heart rate 96 /min Rajesh Lin MD Work Phone: [facility] 12-01-2022 11:05-0400 Respiratory rate 18 /min Rajesh Lin MD Work Phone: [facility] 12-01-2022 11:05-0400 SaO2% (BldA) [Mass fraction] 97 % Rajesh Lin MD Work Phone: [facility] 12-01-2022 11:05-0400 Systolic blood pressure 122 mm[Hg] Rajesh Lin MD Work Phone: [facility] 10-14-2022 17:51-0400 Body temperature 98.8 [degF] Barbara Singer SENIOR REGULATORY AFFAIRS SPECIALIST.PETAL CUTTER Work Phone: [facility] 10-14-2022 17:51-0400 Body weight 88.54 kg Barbara Singer SENIOR REGULATORY AFFAIRS SPECIALIST.PETAL CUTTER Work Phone: [facility] 10-14-2022 17:51-0400 Diastolic blood pressure 86 mm[Hg] Barbara Praisler-Wood SENIOR REGULATORY AFFAIRS SPECIALIST.PETAL CUTTER Work Phone: [facility] 10-14-2022 17:51-0400 Heart rate 92 /min Barbara Praisler-Wood SENIOR REGULATORY AFFAIRS SPECIALIST.PETAL CUTTER Work Phone: [facility] 10-14-2022 17:51-0400 Respiratory rate 18 /min Barbara Praisler-Wood SENIOR REGULATORY AFFAIRS SPECIALIST.PETAL CUTTER Work Phone: [facility] 10-14-2022 17:51-0400 SaO2% (BldA) [Mass fraction] 98 % Barbara Praisler-Wood SENIOR REGULATORY AFFAIRS SPECIALIST.PETAL CUTTER Work Phone: [facility] 10-14-2022 17:51-0400 Systolic blood pressure 134 mm[Hg] Barbara Praisler-Wood SENIOR REGULATORY AFFAIRS SPECIALIST.PETAL CUTTER Work Phone: [facility] 06-24-2022 11:22-0500 Body temperature 98.01 [degF] Barbara Praisler-Wood SENIOR REGULATORY AFFAIRS SPECIALIST.PETAL CUTTER Work Phone: [facility] 06-24-2022 11:22-0500 Body weight 86.27 kg Barbara Praisler-Wood SENIOR REGULATORY AFFAIRS SPECIALIST.PETAL CUTTER Work Phone: [facility] 06-24-2022 11:22-0500 Diastolic blood pressure 82 mm[Hg] Barbara Praisler-Wood SENIOR REGULATORY AFFAIRS SPECIALIST.PETAL CUTTER Work Phone: [facility] 06-24-2022 11:22-0500 Heart rate 94 /min Barbara Praisler-Wood SENIOR REGULATORY AFFAIRS SPECIALIST.PETAL CUTTER Work Phone: [facility] 06-24-2022 11:22-0500 Respiratory rate 16 /min Barbara Praisler-Wood SENIOR REGULATORY AFFAIRS SPECIALIST.PETAL CUTTER Work Phone: [facility] 06-24-2022 11:22-0500 SaO2% (BldA) [Mass fraction] 98 % Barbara Praisler-Wood SENIOR REGULATORY AFFAIRS SPECIALIST.PETAL CUTTER Work Phone: [facility] 06-24-2022 11:22-0500 Systolic blood pressure 110 mm[Hg] Barbara Singer APRN.SUZANNA Work Phone: [facility] Encounters Encounter Date Encounter Type Care Provider Facility Start: 07-07-2023 End: 07-07-2023 ambulatory [facility] Facility:[facility] Start: 02-17-2023 End: 02-17-2023 ambulatory [facility] Facility:[facility] Start: 02-17-2023 End: 02-17-2023 Patient encounter procedure Joslyn Plaza SENIOR REGULATORY AFFAIRS SPECIALIST.SUZANNA Work Phone: [facility] Procedures Date Procedure Procedure Detail Performing Clinician Start: 08-15-[address] APRN.SUZANNA Work Phone: Plan of Treatment Date Care Activity Detail Author Start: 02-24-2023 Influenza vaccination C [facility] Start: 06-26-2022 DEPRESSION ASSESSMENT DEPRESSION ASS ESSMENT [facility] Start: 02-24-2022 Influenza vaccination INFLUENZA (#1) [facility] Start: 10-12-2021 SHINGRIX VACCINE (1 of 2) SHINGRIX V ACCINE (1 of 2) [facility] Start: 05-26-2021 LIPID SCREEN LIPID SCREEN [facility] Start: 05-26-2019 DIABETES SCREEN DIABETES SCREEN [facility] Start: 09-18-2017 HPV TESTING HPV TESTING [facility] Start: 09-18-2017 PAP TESTING PAP TESTING [facility] Start: 10-12-2016 COLOGUARD (FIT-DNA) COLOGUARD (FIT-D NA) [facility] Start: 10-12-2016 Colonoscopy COLONOSCOPY [facility] Start: 10-12-2016 COLORECTAL CANCER SCREENING COLORECTAL CANCER SCREENING [facility] Start: 10-12-[address] COLONOGRAPHY [facility] Start: 10-12-2016 FECAL OCCULT BLOOD FECAL OCCULT BLOO D [facility] Start: 10-12-2016 SIGMOIDOSCOPY SIGMOIDOSCOPY [facility] Start: 2011 Mammography MAMMOGRAM [facility] Start: 10-12-1990 Urine microalbumin profile DTAP,TDAP ,TD (1 - Tdap) [facility] Start: 10-12-1989 HEPATITIS C SCREENING HEPATITIS C SC REENING [facility] Start: 10-12-1977 PNEUMOCOCCAL (1 - PCV) PNEUMOCOCCAL (1 - PCV) [facility] Start: 04-13-1972 COVID-19 VACCINE (#1) COVID-19 VACCI NE (#1) [facility] Start: 1971 HEPATITIS B (1 of 3 - 3-dose series) HEPATITIS B (1 of 3 - 3-dose series) [facility] Payers Date Payer Category Payer Private Health Insurance [facility] [employer] CHOICE PLUS [id number] 2015-Present [phone] [address] [address] [place] [address] Indemnity [id number] 2015 Unknown [id number] Social History Date Type Detail Facility Start: 06-24-2022 Tobacco smoking stat [facility] Occasional tobacco smoker [facility] End: 12-13-2005 History of tobacco use Cigarette Smoker [facility] Start: 06-03-2020 End: 06-24-2022 Cigarettes smoked current (pack per day) - Reported 0.5 [facility] Start: 06-24-2022 Tobacco use and exposure Smoke less tobacco non-user [facility] Start: 06-24-2022 End: 02-17-2023 Alcohol intake Current non-drinker of alcohol (finding) [facility] Start: 06-24-2022 Tobacco Comment quit in 2005 [facility] Start: 1970 Sex Assigned At Not on file [facility] Start: 06-03-2020 End: 02-17-2023 Tobacco use panel [facility] National Score (1-10 0), lower number is lower risk Not on file [facility] Clinical Notes 08-19-2008 to 07-07-2023 Joslyn Plaza APRN.PETAL CUTTER - 02/17/2023 3:25 PM Edgar Lin MD - 12/01/2022 11:13 AM EDTPatient InstructionsBarbara Singer APRN.PETAL CUTTER - 10/14/2022 6:01 PM EDTPatient Instructions Note Date & Type Note Facility 07-07-2023 Note HNO ID: [id number] Author: DELILAH BLACK PA-C Service: ? Author Type: Physician Driller Hand Type: Progress Notes Filed: 07/07/2023 13:16 Note Text: This note was created using [employer]. Subjective Radha Chew is a 52 year old female. HPI Presents with a chief complaint of cough, sinus pressure congestion over the past 10 days. She states she has some chest heaviness after she coughs as well. She felt feverish yesterday. She did vomit 1 time this morning. No diarrhea. Her son is sick with similar symptoms. No home COVID test done. No history of asthma. Review of Systems Constitutional: Positive for fatigue and fever. HENT: Positive for congestion, sinus pressure and sinus pain. Negative for ear pain. Respiratory: Positive for cough. Negative for shortness of breath and wheezing. Cardiovascular: Negative. Gastrointestinal: Positive for vomiting. Negative for abdominal pain and diarrhea. Genitourinary: Negative. Musculoskeletal: Positive for myalgias. Neurological: Positive for headaches. All other systems reviewed and are negative. PAST MEDICAL HISTORY Diagnosis Date Abnormal glandular Papanicolaou smear of cervix Abn. Pap smear (cervix) Unspecified hemorrhoids without mention of complication Current Outpatient Medications Medication Sig Dispense Refill ALPRAZolam (XANAX) 0.25 mg tablet Take 0.25 mg by mouth as needed. citalopram (CELEXA) 20 mg tablet Take 1 tablet by mouth once daily. 0 doxycycline (VIBRA-TABS) 100 mg tablet Take 1 tablet by mouth two times a day for 7 days. 14 tablet 0 predniSONE (DELTASONE) 20 mg tablet Take 2 tablets by mouth once daily for 5 days. 10 tablet 0 ELIQUIS DVT-PE TREAT 30D START 5 mg (74 tabs) (Patient not taking: Reported on 07/07/2023) predniSONE (DELTASONE) 10 mg tablet Take 4 tabs daily for 3 days, then 2 tabs daily for 3 days, then 1 tab daily for 3 days with food. (Patient not taking: Reported on 07/07/2023) 21 tablet 0 No current facility-administered medications for this visit. PAST SURGICAL HISTORY Procedure Laterality Date CAUTERY CERVIX CRYOCAUTERY INITIAL/REPEAT 1990 DELIVERY ONLY 06/16/2006,09/09/2008 HEMORRHOIDECTOMY 2014 TUBAL LIGATION HX Bilateral 09/09/2008 FAMILY HISTORY Problem Relation Age of Onset other (MULTIPLE MYELOMA) Mother Diabetes Father Stroke Father Cancer Father HODGKINS Diabetes Maternal Grandmother Cancer Maternal Grandfather LUNG CANCER Diabetes Paternal Grandmother Blood Disease Paternal Grandmother Social History Tobacco Use Smoking status: Some Days Packs/day: 0.50 Years: 10.00 Additional pack years: 0.00 Total pack years: 5.00 Types: Cigarettes Last attempt to quit: 12/13/2005 Years since quittin.5 Smokeless tobacco: Never Tobacco comments: quit in 2005 Substance Use Topics Alcohol use: No Drug use: No Objective BP 124/80 Pulse 103 Temp 36.9 ?C (98.5 ?F) Resp 20 Wt 87.5 kg (193 lb) LMP 07/19/2016 (Approximate) SpO2 95% Physical Exam Vitals reviewed. Constitutional: Appearance: Normal appearance. HENT: Head: Normocephalic and atraumatic. Right Ear: Tympanic membrane, ear canal and external ear normal. Left Ear: Tympanic membrane, ear canal and external ear normal. Nose: Congestion present. Right Sinus: Maxillary sinus tenderness present. Left Sinus: Maxillary sinus tenderness present. Mouth/Throat: Mouth: Mucous membranes are moist. Pharynx: Oropharynx is clear. Cardiovascular: Rate and Rhythm: Normal rate and regular rhythm. Heart sounds: Normal heart sounds. Pulmonary: Effort: Pulmonary effort is normal. Breath sounds: Normal breath sounds. No wheezing, rhonchi or rales. Musculoskeletal: Cervical back: Neck supple. Lymphadenopathy: Cervical: No cervical adenopathy. Skin: General: Skin is warm and dry. Findings: No rash. Neurological: Mental Status: She is alert. Assessment and Plan ASSESSMENT/PLAN: 1. Sinobronchitis - ICD9: 473.9, 490, ICD10: J32.9, J40 - Will begin treatment with Doxycycline - Supportive care with plenty of fluids, rest, and analgesia prn. - Follow up in 3-5 days if symptoms persist or worsen. Deillah Black PA-C [facility] 02-17-2023 Note HNO ID: [id number] Author: Joslyn Plaza APRN.SUZANNA Service: ? Author Type: Nurse Practitioner Type: Progress Notes Filed: 02/17/2023 3:40 PM Note Text: This note was created using NoteWriter. Subjective Radha Chew is a 52 year old female. 52 year old female with no PMH presents for complaints of illness. Acute onset 3 weeks ago + productive sputum +sinus pressure +throat pain +post nasal drainage +chills Denies CP. Denies SOB or dyspnea Denies fever Denies tobacco usage. The history is provided by the patient. No multi disciplined language analyst was used. Cough This is a new problem. The current episode started more than 1 week ago. The problem occurs constantly. The problem has been gradually worsening. The cough is Productive of sputum. There has been no fever. Associated symptoms include chills, ear congestion and headaches. Pertinent negatives include no chest pain, no sweats, no weight loss, no ear pain, no rhinorrhea, no sore throat, no myalgias, no shortness of breath, no wheezing and no eye redness. She has tried nothing for the symptoms. She is not a smoker. Her past medical history does not include bronchitis, pneumonia, bronchiectasis, COPD, emphysema or asthma. PAST MEDICAL HISTORY Diagnosis Date Abnormal glandular Papanicolaou smear of cervix Abn. Pap smear (cervix) Unspecified hemorrhoids without mention of complication PAST SURGICAL HISTORY Procedure Laterality Date CAUTERY CERVIX CRYOCAUTERY INITIAL/REPEAT 1990 DELIVERY ONLY 06/16/2006,09/09/2008 HEMORRHOIDECTOMY 2014 TUBAL LIGATION HX Bilateral 09/09/2008 ALLERGIES Amoxil [Amoxicillin], Grass Pollen, Latex, and Penicillins MEDICATIONS ELIQUIS DVT-PE TREAT 30D START 5 mg (74 tabs) ALPRAZolam (XANAX) 0.25 mg tablet Take 0.25 mg by mouth as needed. citalopram (CELEXA) 20 mg tablet Take 1 tablet by mouth once daily. predniSONE (DELTASONE) 10 mg tablet Take 4 tabs daily for 3 days, then 2 tabs daily for 3 days, then 1 tab daily for 3 days with food. doxycycline (VIBRA-TABS) 100 mg tablet Take 1 tablet by mouth twice daily for 7 days. FAMILY HISTORY Problem Relation Age of Onset other (MULTIPLE MYELOMA) Mother Diabetes Father Stroke Father Cancer Father HODGKINS Diabetes Maternal Grandmother Cancer Maternal Grandfather LUNG CANCER Diabetes Paternal Grandmother Blood Disease Paternal Grandmother Social History Tobacco Use Smoking status: Some Days Packs/day: 0.50 Years: 10.00 Additional pack years: 0.00 Total pack years: 5.00 Types: Cigarettes Last attempt to quit: 12/13/2005 Years since quittin.1 Smokeless tobacco: Never Tobacco comments: quit in 2006 Substance Use Topics Alcohol use: No Drug use: No Review of Systems Constitutional: Positive for chills and fatigue. Negative for fever and weight loss. HENT: Positive for congestion, postnasal drip, sinus pressure and sinus pain. Negative for ear pain, rhinorrhea and sore throat. Eyes: Negative for redness. Respiratory: Positive for cough. Negative for apnea, choking, chest tightness, shortness of breath and wheezing. Cardiovascular: Negative for chest pain. Gastrointestinal: Negative for abdominal pain, diarrhea, nausea and vomiting. Musculoskeletal: Negative for arthralgias, back pain and myalgias. Skin: Negative for color change, pallor, rash and wound. Allergic/Immunologic: Negative for environmental allergies, food allergies and immunocompromised state. Neurological: Positive for headaches. Negative for dizziness and facial asymmetry. Hematological: Negative for adenopathy. Does not bruise/bleed easily. Psychiatric/Behavioral: Negative for agitation and behavioral problems. Objective BP 112/80 Pulse 85 Temp 36.8 ?C (98.3 ?F) (Tympanic) Resp 18 Wt 88.8 kg (195 lb 12.8 oz) LMP 07/19/2016 (Approximate) SpO2 98% Physical Exam Vitals and nursing note reviewed. Constitutional: General: She is not in acute distress. Appearance: Normal appearance. She is normal weight. She is not ill-appearing, toxic-appearing or diaphoretic. HENT: Head: Normocephalic and atraumatic. Comments: +frontal sinus pressure +maxillary sinus pressure Right Ear: Ear canal and external ear normal. Left Ear: Ear canal and external ear normal. Nose: Nose normal. No congestion or rhinorrhea. Mouth/Throat: Mouth: Mucous membranes are moist. Pharynx: No oropharyngeal exudate or posterior oropharyngeal erythema. Eyes: General: Right eye: No discharge. Left eye: No discharge. Extraocular Movements: Extraocular movements intact. Conjunctiva/sclera: Conjunctivae normal. Pupils: Pupils are equal, round, and reactive to light. Cardiovascular: Rate and Rhythm: Normal rate and regular rhythm. Pulses: Normal pulses. Heart sounds: Normal heart sounds. No murmur heard. No friction rub. Pulmonary: Effort: Pulmonary effort is normal. No respiratory distress. (more content not included)... [facility] 02-17-2023 History of Present illness Narrative This note was created using [employer]. Subjective Radha Chew is a 52 year old female. 52 year old female with no PMH presents for complaints of illness. Acute onset 3 weeks ago + productive sputum +sinus pressure +throat pain +post nasal drainage +chills Denies CP. Denies SOB or dyspnea Denies fever Denies tobacco usage. The history is provided by the patient. No multi disciplined language analyst was used. Cough This is a new problem. The current episode started more than 1 week ago. The problem occurs constantly. The problem has been gradually worsening. The cough is Productive of sputum. There has been no fever. Associated symptoms include chills, ear congestion and headaches. Pertinent negatives include no chest pain, no sweats, no weight loss, no ear pain, no rhinorrhea, no sore throat, no myalgias, no shortness of breath, no wheezing and no eye redness. She has tried nothing for the symptoms. She is not a smoker. Her past medical history does not include bronchitis, pneumonia, bronchiectasis, COPD, emphysema or asthma. PAST MEDICAL HISTORY Diagnosis Date Abnormal glandular Papanicolaou smear of cervix Abn. Pap smear (cervix) Unspecified hemorrhoids without mention of complication PAST SURGICAL HISTORY Procedure Laterality Date CAUTERY CERVIX CRYOCAUTERY INITIAL/REPEAT 1990 DELIVERY ONLY 06/16/2006,09/09/2008 HEMORRHOIDECTOMY 2014 TUBAL LIGATION HX Bilateral 09/09/2008 ALLERGIES Amoxil [Amoxicillin], Grass Pollen, Latex, and Penicillins MEDICATIONS ELIQUIS DVT-PE TREAT 30D START 5 mg (74 tabs) ALPRAZolam (XANAX) 0.25 mg tablet Take 0.25 mg by mouth as needed. citalopram (CELEXA) 20 mg tablet Take 1 tablet by mouth once daily. predniSONE (DELTASONE) 10 mg tablet Take 4 tabs daily for 3 days, then 2 tabs daily for 3 days, then 1 tab daily for 3 days with food. doxycycline (VIBRA-TABS) 100 mg tablet Take 1 tablet by mouth twice daily for 7 days. FAMILY HISTORY Problem Relation Age of Onset other (MULTIPLE MYELOMA) Mother Diabetes Father Stroke Father Cancer Father HODGKINS Diabetes Maternal Grandmother Cancer Maternal Grandfather LUNG CANCER Diabetes Paternal Grandmother Blood Disease Paternal Grandmother Social History Tobacco Use Smoking status: Some Days Packs/day: 0.50 Years: 10.00 Additional pack years: 0.00 Total pack years: 5.00 Types: Cigarettes Last attempt to quit: 12/13/2005 Years since quittin.1 Smokeless tobacco: Never Tobacco comments: quit in 2006 Substance Use Topics Alcohol use: No Drug use: No Review of Systems Constitutional: Positive for chills and fatigue. Negative for fever and weight loss. HENT: Positive for congestion, postnasal drip, sinus pressure and sinus pain. Negative for ear pain, rhinorrhea and sore throat. Eyes: Negative for redness. Respiratory: Positive for cough. Negative for apnea, choking, chest tightness, shortness of breath and wheezing. Cardiovascular: Negative for chest pain. Gastrointestinal: Negative for abdominal pain, diarrhea, nausea and vomiting. Musculoskeletal: Negative for arthralgias, back pain and myalgias. Skin: Negative for color change, pallor, rash and wound. Allergic/Immunologic: Negative for environmental allergies, food allergies and immunocompromised state. Neurological: Positive for headaches. Negative for dizziness and facial asymmetry. Hematological: Negative for adenopathy. Does not bruise/bleed easily. Psychiatric/Behavioral: Negative for agitation and behavioral problems. Objective BP 112/80 Pulse 85 Temp 36.8 C (98.3 F) (Tympanic) Resp 18 Wt 88.8 kg (195 lb 12.8 oz) LMP 07/19/2016 (Approximate) SpO2 98% Physical Exam Vitals and nursing note reviewed. Constitutional: General: She is not in acute distress. Appearance: Normal appearance. She is normal weight. She is not ill-appearing, toxic-appearing or diaphoretic. HENT: Head: Normocephalic and atraumatic. Comments: +frontal sinus pressure +maxillary sinus pressure Right Ear: Ear canal and external ear normal. Left Ear: Ear canal and external ear normal. Nose: Nose normal. No congestion or rhinorrhea. Mouth/Throat: Mouth: Mucous membranes are moist. Pharynx: No oropharyngeal exudate or posterior oropharyngeal erythema. Eyes: General: Right eye: No discharge. Left eye: No discharge. Extraocular Movements: Extraocular movements intact. Conjunctiva/sclera: Conjunctivae normal. Pupils: Pupils are equal, round, and reactive to light. Cardiovascular: Rate and Rhythm: Normal rate and regular rhythm. Pulses: Normal pulses. Heart sounds: Normal heart sounds. No murmur heard. No friction rub. Pulmonary: Effort: Pulmonary effort is normal. No respiratory distress. Breath sounds: Normal breath sounds. No stridor. No wheezing, rhonchi or rales. Comments: Harsh cough noted. Chest: Chest wall: No tenderness. Abdominal: General: Abdomen is flat. There is no distension. Palpations: Abdomen is soft. There is no mass. Tenderness: There is no abdominal tenderness. There is no right CVA tenderness, left CVA tenderness, guarding or rebound. Hernia: No hernia is present. Musculoskeletal: General: No swelling, tenderness, deformity or signs of injury. Normal range of motion. Cervical back: Normal range of motion and neck supple. No rigidity. Right lower leg: No edema. Left lower leg: No edema. Lymphadenopathy: Cervical: No cervical adenopathy. Skin: General: Skin is warm and dry. Capillary Refill: Capillary refill takes less than 2 seconds. Coloration: Skin is not jaundiced or pale. Findings: No bruising, erythema, lesion or rash. Neurological: General: No focal deficit present. Mental Status: She is alert and oriented to person, place, and time. Cranial Nerves: No cranial nerve deficit. Sensory: No sensory deficit. Motor: No weakness. Coordination: Coordination normal. Gait: Gait normal. Psychiatric: Mood and Affect: Mood normal. Behavior: Behavior normal. Thought Content: Thought content normal. Judgment: Judgment normal. Assessment and Plan ASSESSMENT/PLAN: 1. Rhinosinusitis - ICD9: 473.9, ICD10: J31.0, J32.9 - Will begin treatment with as per antibiotic as written, see orders - The patient should also be given OTC cough and cold meds as needed, warm salt water gargles, throat lozenges and/or OTC throat spray as needed, and nasal saline gtts and suction prn for the first 5-7 days of treatment. - Supportive care with plenty of fluids, rest, and analgesia prn. - Follow up in 3-5 days if symptoms persist or worsen. Joslyn Plaza APRN.PETAL CUTTER documented in this encounter [facility] 12-01-2022 Note HNO ID: [id number] Author: RT Maria Esther(R) Service: ? Author Type: Gas Maker Helper Type: Progress Notes Filed: 12/01/2022 12:02 PM Note Text: Radiology Service Progress Note PATIENT NAME: Radha Chew DATE OF SERVICE: December 01, 2022 TIME: 11:50 AM PATIENT IDENTITY VERIFICATION COMPLETED USING TWO (2) IDENTIFIERS: Name and Date of confirmed by patient verbally. FALL SCREENING: Has the patient had 2 falls in the last year or 1 fall with injury or currently using an Ambulatory Assistive Device (Walker, Cane, Wheelchair, Crutches, etc.)? No PATIENT GENDER DATA: Female. status: : No status: NO. PATIENT RELEVANT IMPLANT DATA REVIEWED: Yes RADIOLOGY DEPARTMENT: General X-ray: Exam(s) Completed: Lower Extremity X-Ray(s): Foot, Right PERIPHERAL IV DATA: Not applicable SIGNED BY: RT Maria Esther(R) December 01, 2022 11:50 AM [facility] 12-01-2022 Note HNO ID: [id number] Author: Rajesh Lin MD Service: ? Author Type: Physician Type: Progress Notes Filed: 12/01/2022 1:02 PM Note Text: Patient presents with: right foot pain: Fell down stairs 3 days ago HPI: Right foot pain: Duration: fell down stairs 3 days ago Location: mid right foot Character: sharp with use Radiation: No. Aggravating: standing and walking Relieving: rest, JIE wrap Pain relievers: Motrin Associated: bruising Pertinent negatives: Denies numbness MEDICATIONS: ALPRAZolam (XANAX) 0.25 mg tablet Take 0.25 mg by mouth as needed. citalopram (CELEXA) 20 mg tablet Take 1 tablet by mouth once daily. ALLERGIES: ALLERGIES Allergen Reactions Amoxil [Amoxicillin] Rash Grass Pollen Hives Latex Rash RASH WHEN USES LATEX GLOVES Penicillins Rash VITALS: BP 122/80 Pulse 96 Temp 37.2 ?C (99 ?F) (Tympanic) Resp 18 LMP 07/19/2016 (Approximate) SpO2 97% PE: Pleasant, in no acute distress. FOOT/ANKLE: right . Swelling not present. Ecchymosis of the media lateral aspect of the foot extending to near the 1st metatarsal head on the sole. No deformity. Range of motion: inversion - non-painful, eversion - non-painful, anterior drawer- non-painful. Toe ROM - non-painful. Painful to bear weight. Palpation: Medial malleolus non-painful, lateral malleolus non-painful, Dorsal proximal midfoot - non-painful, tender 1st metatarsal, 2-5th metatarsals non-painful, posterior calcaneus non-painful ASSESSMENT/PLAN: 1. Closed nondisplaced fracture of first metatarsal bone of right foot, initial encounter - ICD9: 825.25, ICD10: S92.314A (primary diagnosis) 2. Foot pain, right - ICD9: 729.5, ICD10: M79.671 - XR FOOT GENERAL 3V AP/LAT/OBL RIGHT - Nondisplaced fracture of the base of the right first metatarsal Placed in walking boot from stock. Non-weight bearing. She will use crutches she has at home. Advised against driving. As needed OTC analgesia. - CONSULT TO PODIATRY - disc burned with images for outside provider. Rajesh Lin MD [facility] 12-01-2022 History of Present illness Narrative Patient presents with: right foot pain: Fell down stairs 3 days ago HPI: Right foot pain: Duration: fell down stairs 3 days ago Location: mid right foot Character: sharp with use Radiation: No. Aggravating: standing and walking Relieving: rest, JIE wrap Pain relievers: Motrin Associated: bruising Pertinent negatives: Denies numbness MEDICATIONS: ALPRAZolam (XANAX) 0.25 mg tablet Take 0.25 mg by mouth as needed. citalopram (CELEXA) 20 mg tablet Take 1 tablet by mouth once daily. ALLERGIES: ALLERGIES Allergen Reactions Amoxil [Amoxicillin] Rash Grass Pollen Hives Latex Rash RASH WHEN USES LATEX GLOVES Penicillins Rash VITALS: BP 122/80 Pulse 96 Temp 37.2 C (99 F) (Tympanic) Resp 18 LMP 07/19/2016 (Approximate) SpO2 97% PE: Pleasant, in no acute distress. FOOT/ANKLE: right . Swelling not present. Ecchymosis of the media lateral aspect of the foot extending to near the 1st metatarsal head on the sole. No deformity. Range of motion: inversion - non-painful, eversion - non-painful, anterior drawer- non-painful. Toe ROM - non-painful. Painful to bear weight. Palpation: Medial malleolus non-painful, lateral malleolus non-painful, Dorsal proximal midfoot - non-painful, tender 1st metatarsal, 2-5th metatarsals non-painful, posterior calcaneus non-painful ASSESSMENT/PLAN: 1. Closed nondisplaced fracture of first metatarsal bone of right foot, initial encounter - ICD9: 825.25, ICD10: S92.314A (primary diagnosis) 2. Foot pain, right - ICD9: 729.5, ICD10: M79.671 - XR FOOT GENERAL 3V AP/LAT/OBL RIGHT - Nondisplaced fracture of the base of the right first metatarsal Placed in walking boot from stock. Non-weight bearing. She will use crutches she has at home. Advised against driving. As needed OTC analgesia. - CONSULT TO PODIATRY - disc burned with images for outside provider. Rajesh Lin MD documented in this encounter [facility] 10-14-2022 Note HNO ID: [id number] Author: Barbara Singer APRN.PETAL CUTTER Service: ? Author Type: Nurse Practitioner Type: Progress Notes Filed: 10/14/2022 6:07 PM Note Text: Subjective HPI Radha Chew is a 52 year old female who presents with hearing my heart in my ears and tightness in my chest . This has been intermittent for the past 2 weeks. Normally goes away. Today she looked her symptoms up on the Internet and found that these indicated something not good . She denies: chest pain, shortness of breath, jaw pain, shoulder pain radiating to her arm, nausea or vomiting or diaphoresis. She feels her BP today of 134/86 indicates high blood pressure, as she never has a blood pressure that high even is she is anxious. She has a history of anxiety but has not needed her xanax in over a year. Review of Systems Constitutional: Negative for diaphoresis and fever. Respiratory: Negative for shortness of breath. Cardiovascular: Positive for chest pain ( tightness ). Gastrointestinal: Negative for nausea and vomiting. Psychiatric/Behavioral: The patient is nervous/anxious. BP 134/86 Pulse 92 Temp 37.1 ?C (98.8 ?F) Resp 18 Wt 88.5 kg (195 lb 3.2 oz) LMP 07/19/2016 (Approximate) SpO2 98% PAST MEDICAL HISTORY Diagnosis Date Abnormal glandular Papanicolaou smear of cervix Abn. Pap smear (cervix) Unspecified hemorrhoids without mention of complication PAST SURGICAL HISTORY Procedure Laterality Date CAUTERY CERVIX CRYOCAUTERY INITIAL/REPEAT 1990 DELIVERY ONLY 06/16/2006,09/09/2008 HEMORRHOIDECTOMY 2014 TUBAL LIGATION HX Bilateral 09/09/2008 ALLERGIES Amoxil [Amoxicillin], Grass Pollen, Latex, and Penicillins MEDICATIONS ALPRAZolam (XANAX) 0.25 mg tablet Take 0.25 mg by mouth as needed. citalopram (CELEXA) 20 mg tablet Take 1 tablet by mouth once daily. fluticasone (FLOVENT HFA) 110 mcg/actuation inhaler Inhale 2 Puffs as instructed twice daily. (Patient not taking: Reported on 02/25/2020 ) albuterol HFA (PROAIR HFA) 90 mcg/actuation inhaler Inhale 2 Puffs as instructed every 6 hours as needed. (Patient not taking: Reported on 02/25/2020 ) benzonatate (TESSALON PERLE) 100 mg capsule Take 2 capsules by mouth three times daily as needed. (Patient not taking: Reported on 02/25/2020 ) mupirocin (BACTROBAN) 2 % ointment Apply 1 application to affected area three times daily for 10 days. Location: right breast FAMILY HISTORY Problem Relation Age of Onset other (MULTIPLE MYELOMA) Mother Diabetes Father Stroke Father Cancer Father HODGKINS Diabetes Maternal Grandmother Cancer Maternal Grandfather LUNG CANCER Diabetes Paternal Grandmother Blood Disease Paternal Grandmother Social History Tobacco Use Smoking status: Some Days Packs/day: 0.50 Years: 10.00 Pack years: 5.00 Types: Cigarettes Last attempt to quit: 12/13/2005 Years since quittin.8 Smokeless tobacco: Never Tobacco comments: quit in 2006 Substance Use Topics Alcohol use: No Drug use: No Objective Physical Exam Vitals and nursing note reviewed. Constitutional: Appearance: Normal appearance. Neck: Vascular: No carotid bruit or JVD. Cardiovascular: Rate and Rhythm: Normal rate and regular rhythm. Heart sounds: Normal heart sounds. Pulmonary: Effort: Pulmonary effort is normal. No respiratory distress. Breath sounds: Normal breath sounds. No wheezing or rales. Skin: General: Skin is warm and dry. Capillary Refill: Capillary refill takes less than 2 seconds. Findings: No erythema or rash. Neurological: Mental Status: She is alert. ASSESSMENT/PLAN: 1. Feeling of chest tightness - ICD9: 786.59, ICD10: R07.89 Chest pain of unclear etiology, patient with significant risk factor(s) of smoking Recommend ER evaluation to rule out any cardiac cause. Barbara Singer APRN.CNP [facility] 10-14-2022 Instructions Barbara Singer APRN.CNP - 10/14/2022 6:07 PM EDT ASSESSMENT/PLAN: 1. Feeling of chest tightness - ICD9: 786.59, ICD10: R07.89 Chest pain of unclear etiology, patient with significant risk factor(s) of smoking Recommend ER evaluation to rule out any cardiac cause. Barbara Singer APRN.CNP documented in this encounter [facility] 10-14-2022 History of Present illness Narrative Subjective HPI Radha Chew is a 52 year old female who presents with hearing my heart in my ears and tightness in my chest . This has been intermittent for the past 2 weeks. Normally goes away. Today she looked her symptoms up on the Internet and found that these indicated something not good . She denies: chest pain, shortness of breath, jaw pain, shoulder pain radiating to her arm, nausea or vomiting or diaphoresis. She feels her BP today of 134/86 indicates high blood pressure, as she never has a blood pressure that high even is she is anxious. She has a history of anxiety but has not needed her xanax in over a year. Review of Systems Constitutional: Negative for diaphoresis and fever. Respiratory: Negative for shortness of breath. Cardiovascular: Positive for chest pain ( tightness ). Gastrointestinal: Negative for nausea and vomiting. Psychiatric/Behavioral: The patient is nervous/anxious. BP 134/86 Pulse 92 Temp 37.1 C (98.8 F) Resp 18 Wt 88.5 kg (195 lb 3.2 oz) LMP 07/19/2016 (Approximate) SpO2 98% PAST MEDICAL HISTORY Diagnosis Date Abnormal glandular Papanicolaou smear of cervix Abn. Pap smear (cervix) Unspecified hemorrhoids without mention of complication PAST SURGICAL HISTORY Procedure Laterality Date CAUTERY CERVIX CRYOCAUTERY INITIAL/REPEAT 1990 DELIVERY ONLY 06/16/2006,09/09/2008 HEMORRHOIDECTOMY 2014 TUBAL LIGATION HX Bilateral 09/09/2008 ALLERGIES Amoxil [Amoxicillin], Grass Pollen, Latex, and Penicillins MEDICATIONS ALPRAZolam (XANAX) 0.25 mg tablet Take 0.25 mg by mouth as needed. citalopram (CELEXA) 20 mg tablet Take 1 tablet by mouth once daily. fluticasone (FLOVENT HFA) 110 mcg/actuation inhaler Inhale 2 Puffs as instructed twice daily. (Patient not taking: Reported on 02/25/2020 ) albuterol HFA (PROAIR HFA) 90 mcg/actuation inhaler Inhale 2 Puffs as instructed every 6 hours as needed. (Patient not taking: Reported on 02/25/2020 ) benzonatate (TESSALON PERLE) 100 mg capsule Take 2 capsules by mouth three times daily as needed. (Patient not taking: Reported on 02/25/2020 ) mupirocin (BACTROBAN) 2 % ointment Apply 1 application to affected area three times daily for 10 days. Location: right breast FAMILY HISTORY Problem Relation Age of Onset other (MULTIPLE MYELOMA) Mother Diabetes Father Stroke Father Cancer Father HODGKINS Diabetes Maternal Grandmother Cancer Maternal Grandfather LUNG CANCER Diabetes Paternal Grandmother Blood Disease Paternal Grandmother Social History Tobacco Use Smoking status: Some Days Packs/day: 0.50 Years: 10.00 Pack years: 5.00 Types: Cigarettes Last attempt to quit: 12/13/2005 Years since quittin.8 Smokeless tobacco: Never Tobacco comments: quit in 2005 Substance Use Topics Alcohol use: No Drug use: No Objective Physical Exam Vitals and nursing note reviewed. Constitutional: Appearance: Normal appearance. Neck: Vascular: No carotid bruit or JVD. Cardiovascular: Rate and Rhythm: Normal rate and regular rhythm. Heart sounds: Normal heart sounds. Pulmonary: Effort: Pulmonary effort is normal. No respiratory distress. Breath sounds: Normal breath sounds. No wheezing or rales. Skin: General: Skin is warm and dry. Capillary Refill: Capillary refill takes less than 2 seconds. Findings: No erythema or rash. Neurological: Mental Status: She is alert. ASSESSMENT/PLAN: 1. Feeling of chest tightness - ICD9: 786.59, ICD10: R07.89 Chest pain of unclear etiology, patient with significant risk factor(s) of smoking Recommend ER evaluation to rule out any cardiac cause. Barbara Singer APRN.PETAL CUTTER documented in this encounter [facility] 06-24-2022 History of Present illness Narrative Subjective Cough Associated symptoms include headaches and shortness of breath. Pertinent negatives include no chills and no sore throat. Radha Chew is a 51 year old female who presents with sinus congestion, cough, headache, green nasal drainage. She has had her symptoms now for about 10 days. She has been taking Mucinex. She denies fever. Review of Systems Constitutional: Negative for chills and fever. HENT: Positive for congestion and sinus pain. Negative for sore throat. Respiratory: Positive for cough, sputum production and shortness of breath. Cardiovascular: Negative. Neurological: Positive for headaches. BP 110/82 Pulse 94 Temp 36.7 C (98 F) (Tympanic) Resp 16 Wt 86.3 kg (190 lb 3.2 oz) LMP 07/19/2016 (Approximate) SpO2 98% PAST MEDICAL HISTORY Diagnosis Date Abnormal glandular Papanicolaou smear of cervix Abn. Pap smear (cervix) Unspecified hemorrhoids without mention of complication PAST SURGICAL HISTORY Procedure Laterality Date CAUTERY CERVIX CRYOCAUTERY INITIAL/REPEAT 1990 DELIVERY ONLY 06/16/2006,09/09/2008 HEMORRHOIDECTOMY 2014 TUBAL LIGATION HX Bilateral 09/09/2008 ALLERGIES Amoxil [Amoxicillin], Grass Pollen, Latex, and Penicillins MEDICATIONS ALPRAZolam (XANAX) 0.25 mg tablet Take 0.25 mg by mouth as needed. citalopram (CELEXA) 20 mg tablet Take 1 tablet by mouth once daily. doxycycline monohydrate 100 mg tablet Take 1 tablet by mouth twice daily for 7 days. predniSONE (DELTASONE) 20 mg tablet Take 2 tablets by mouth once daily for 4 days. Take daily with food. fluticasone (FLOVENT HFA) 110 mcg/actuation inhaler Inhale 2 Puffs as instructed twice daily. (Patient not taking: Reported on 02/25/2020 ) albuterol HFA (PROAIR HFA) 90 mcg/actuation inhaler Inhale 2 Puffs as instructed every 6 hours as needed. (Patient not taking: Reported on 02/25/2020 ) benzonatate (TESSALON PERLE) 100 mg capsule Take 2 capsules by mouth three times daily as needed. (Patient not taking: Reported on 02/25/2020 ) mupirocin (BACTROBAN) 2 % ointment Apply 1 application to affected area three times daily for 10 days. Location: right breast FAMILY HISTORY Problem Relation Age of Onset other (MULTIPLE MYELOMA) Mother Diabetes Father Stroke Father Cancer Father HODGKINS Diabetes Maternal Grandmother Cancer Maternal Grandfather LUNG CANCER Diabetes Paternal Grandmother Blood Disease Paternal Grandmother Social History Tobacco Use Smoking status: Some Days Packs/day: 0.50 Years: 10.00 Pack years: 5.00 Types: Cigarettes Last attempt to quit: 12/13/2005 Years since quittin.5 Smokeless tobacco: Never Tobacco comments: quit in 2005 Substance Use Topics Alcohol use: No Drug use: No Objective Physical Exam Vitals and nursing note reviewed. Constitutional: Appearance: She is obese. HENT: Right Ear: Tympanic membrane, ear canal and external ear normal. Left Ear: Tympanic membrane, ear canal and external ear normal. Nose: Nose normal. Mouth/Throat: Mouth: Mucous membranes are moist. Pharynx: Oropharynx is clear. Uvula midline. No oropharyngeal exudate or posterior oropharyngeal erythema. Cardiovascular: Rate and Rhythm: Normal rate and regular rhythm. Heart sounds: Normal heart sounds. Pulmonary: Effort: Pulmonary effort is normal. No respiratory distress. Breath sounds: Normal breath sounds. No wheezing or rales. Musculoskeletal: Cervical back: Neck supple. Lymphadenopathy: Cervical: No cervical adenopathy. Skin: General: Skin is warm and dry. Findings: No erythema or rash. Neurological: Mental Status: She is alert. ASSESSMENT/PLAN: 1. Sinobronchitis - ICD9: 473.9, 490, ICD10: J32.9, J40 - Will begin treatment with as per antibiotic as written, see orders - Supportive care with plenty of fluids, rest, and analgesia prn. - DOXYCYCLINE MONOHYDRATE 100 MG TABLET - PREDNISONE 20 MG TABLET - Follow-up with your PCP in 3-5 days if symptoms have not improved or sooner if symptoms worsen - Discussed red flags and need for immediate medical evaluation if any occur. - Discussed supportive care treatment with fluids, rest and analgesia. - Discussed expected course of illness Barbara Singer APRN.CNP documented in this encounter [facility] 06-24-2022 Instructions Barbara Singer APRN.CNP - 06/24/2022 11:37 AM EST Images from the original note were not included. ASSESSMENT/PLAN: 1. Sinobronchitis - ICD9: 473.9, 490, ICD10: J32.9, J40 - Will begin treatment with as per antibiotic as written, see orders - Supportive care with plenty of fluids, rest, and analgesia prn. - DOXYCYCLINE MONOHYDRATE 100 MG TABLET - PREDNISONE 20 MG TABLET - Follow-up with your PCP in 3-5 days if symptoms have not improved or sooner if symptoms worsen - Discussed red flags and need for immediate medical evaluation if any occur. - Discussed supportive care treatment with fluids, rest and analgesia. - Discussed expected course of illness Barbara Singer APRN.CNP Adult Sinusitis Patient Education What is Sinusitis? Sinusitis [jyvz-rpu-[id number]] is inflammation of the sinuses or swelling of the lining of the sinus cavity or nose. During an infection the sinuses become blocked with fluid causing swelling of the lining of the sinuses. Symptoms: (viral and bacterial infections) Stuffy nose Runny nose Postnasal drip Fever Toothache Headache Tiredness Cough Sore throat Face and head pressure and or pain Common causes: 98% of sinus infections are viral caused by viruses. Risk Factors of Sinusitis Include: Allergies, air pollution, indoor humidity and outdoor temperature changes, andstructural changes in the nose may contribute to sinus pain, pressure and congestion. When to get help? Temperature greater than 100.4 F Symptoms lasting more than 10 days or worsening symptoms greater than 7-10 days. If you do not improve or worsen after a course of antibiotics, you should be re-examined. Diagnosis and Treatment: Your healthcare provider will ask a number of questions about your symptoms and how long they have occurred. If symptoms of sinusitis persist greater than 10 days, it is possible you have a bacterial sinus infection and an antibiotic is prescribed. If it is viral, antibiotics will not help. You may be instructed to take kzkh-wly-gbrzyem medications for symptoms. including fever reducers acetaminophen or ibuprofen, nasal saline spray, cough and cold preparations and decongestants as prescribed by the physician, nurse practitioner or physician dental assistant medical assistant. Self-Care and Prevention: Rest Fluids for hydration Good hand washing Humidifier Avoid smoking and exposure to second hand smoke Avoid sick contacts documented in this encounter [facility] documented as of this encounter (statuses as of 06/29/2022) [facility] History of Past illness Narrative* Problem Noted Date Resolved Date Previous delivery, antepartum condition or complication 08/19/2008 08/15/2012 Supervision of other normal 08/19/2008 08/15/2012 Backache, unspecified 12/07/2005 08/04/2006 Supervision of normal first 10/21/2005 06/30/2006 documented as of this encounter (statuses as of 10/15/2022) [facility] History of Past illness Narrative* Problem Noted Date Resolved Date Previous delivery, antepartum condition or complication 08/19/2008 08/15/2012 Supervision of other normal 08/19/2008 08/15/2012 Backache, unspecified 12/07/2005 08/04/2006 Supervision of normal first 10/21/2005 06/30/2006 documented as of this encounter (statuses as of 12/01/2022) [facility] History of Past illness Narrative* Problem Noted Date Diagnosed Date Resolved Date Previous delivery, antepartum condition or complication 08/19/2008 08/15/2012 Supervision of other normal 08/19/2008 08/15/2012 Backache, unspecified 12/07/20052006 Supervision of normal first 10/21/2005 06/30/2006 documented as of this encounter (statuses as of 02/18/2023) [facility] note* Diagnosis Sinobronchitis- Primary Unspecified sinusitis (chronic) [facility]* Diagnosis Feeling of chest tightness- Primary Other chest pain [facility]* Diagnosis Closed nondisplaced fracture of first metatarsal bone of right foot, initial encounter- Primary Foot pain, right Pain in limb [facility]* Diagnosis Rhinosinusitis- Primary Unspecified sinusitis (chronic) documented in this encounter [facility] Reason for Referral Specialty Diagnoses / Procedures Referred By Contac t Referred To Contact Podiatry Diagnoses Closed nondisplaced fracture of first metatarsal bone of right foot, initial encounter Procedures CONSULT TO PODIATRY OFFICE/OUTPATIENT [facility] 60-74 MINUTES Rajesh Lin MD [address] [place] [address] Referral ID Status Reason Start Date Expiration Date Visits Requested Visits Authorized [id number] Authorized PCP Requested Referral 12/01/2022 12/01/2023 1 1 Specialty Diagnoses / Procedures Referred By Contfern t Referred To Contact XR IMAGING Diagnoses Foot pain, right Procedures XR FOOT GENERAL 3V AP/LAT/OBL RIGHT RADEX FOOT COMPLETE MINIMUM 3 VIEWS Rajesh Lin MD [address] [place] [address] Xr Imaging Referral ID Status Reason Start Date Expiration Date V isits Requested Visits Authorized [id number] Closed Auto-Generate d Referral 12/01/2022 12/31/2023 1 1 Summary Purpose Family History No Family History Records Found Advance Directives No Advanced Directives Records Found Additional Source Comments Source Comments (unrecognize d section and content) In the event this informatio n is protected by the Federal Confidentiality of Alcohol and Drug Abuse Patient Records regulations: The Federal rules restrict any use of the information to criminally investigate or prosecute any alcohol or drug abuse patient.[facility] the event this information is protected by the Federal Confidentiality of Alcohol and Drug Abuse Patient Records regulations: The Federal rules restrict any use of the information to criminally investigate or prosecute any alcohol or drug abuse patient.[facility] the event this information is protected by the Federal Confidentiality of Alcohol and Drug Abuse Patient Records regulations: The Federal rules restrict any use of the information to criminally investigate or prosecute any alcohol or drug abuse patient.[facility] the event this information is protected by the Federal Confidentiality of Alcohol and Drug Abuse Patient Records regulations: The Federal rules restrict any use of the information to criminally investigate or prosecute any alcohol or drug abuse patient.[facility] Reason for Visit (unrecogniz ed section and content) Reason Comments Chest Tightness X2 weeks intermitten t Reason Comments right foot pain Fell down stairs 3 d ays ago Reason Comments Cough Cough x 3 weeks with sinus and chills Care Teams (unrecognized sec tion and content) [employer]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 Relationship Specialty Start Date End Date Curtis Moy DO [address] [place], [place] [id number] PCP - General Family Medicine 06/24/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 This clinical summary was aggregated from multiple sources. Caution should be exercised in using it in the provision of clinical care. This summary normalizes information from multiple sources, and as a consequence, information in this document may materially change the coding, format and clinical context of patient data. In addition, data may be omitted in some cases. CLINICAL DECISIONS SHOULD BE BASED ON THE PRIMARY CLINICAL RECORDS. [employer] provides no warranty or guarantee of the accuracy or completeness of information in this document.
[2023-08-25 09:16] VITALS: BP 127/79; PULSE 94; RESP 14; TEMP 36.6; O2SAT 97
== END 2023-08-25 09:17 | disposition home or self-care (01) ==
PROVIDERS: Emergency Provider Emergency Medicine; PCP Family Medicine; Visit Provider Emergency Medicine
DX: M79.604 Pain in right leg (principal); Z87.891 Personal history of nicotine dependence; Z86.718 Personal history of other venous thrombosis and embolism
CPT/HCPCS: 93971; 99282

== ENCOUNTER 2023-10-17 21:28 | Emergency (ER) | payer OTHER, SELFPAY ==
[2023-10-17 21:29] VITALS: BP 138/85; PULSE 95; RESP 16; TEMP 36.5; O2SAT 98; BMI 33.6
--- NOTE | 2023-10-17 21:36 | ED.RN ---
Pt very anxious in triage, emotion support provided at length. Pt states shes not sure if she wants to be seen now that her BP is lower. She states she feels stupid for coming in. This RN states that it is not stupid, that she can check in and be seen by the doctor and get an EKG and blood work if her in the Dr agree on that. She states she wants to sit in triage for a couple minutes and have her vitals checked again. Repeat vitals 123/72, HR 79, RR 16, pulse OX 97%. Pt states she thinks shes going to leave. This RN states she can come back and be seen anytime if she changes her mind or things worsen. She agrees. LWBS at 7546.
== END 2023-10-17 21:36 | disposition left against medical advice (07) ==
LOC: ED 21:55
PROVIDERS: PCP Family Medicine
DX: I10 Essential (primary) hypertension (principal)
CPT/HCPCS: 99282

== ENCOUNTER → 2023-11-01 | Outpatient (CLI) | payer OTHER, SELFPAY ==
[2023-11-01 17:39] LABS: Absolute Lymphocyte Count 1.71 X10^3/uL (0.83-4.51); Absolute Neutrophil Count 4.1 X10^3/uL (2.0-7.7); Basophil# 0.05 X10^3/uL; Basophil% 0.8 % (0-1); Eosinophils% 1.6 % (0-5); Hematocrit 44.1 % (37-47); Hemoglobin 15.3 g/dL (12.0-15.0); Lymphocyte # 1.71 X10^3/ul (0.83-4.51); Lymphocyte % 26.8 % (19-41); Mean Corp Hgb Conc 34.7 g/dL (32-36); Mean Corpuscular Hgb 32.2 pg (27.0-32.0); Mean Corpuscular Volume 92.8 fL (81-99); Monocyte# 0.41 X10^3/uL; Monocyte% 6.4 % (0-10); NRBC Flagged by Analyzer 0 % (0-5); Neutrophil % 64.2 % (47-70); Platelet Count 428 K/mm3 (150-450); RBC Distribution Width CV 11.6 % (11.6-14.6); Red Blood Count 4.75 M/mm3 (4.2-5.4); White Blood Count 6.4 K/mm3 (4.4-11.0)
[2023-11-01 18:34] LABS: ALB/GLOB Ratio 1.1 RATIO (0.9-2.4); AST(SGOT) 24 U/L (15-37); Alanine Aminotransfer ALT/SGPT 20 U/L (13-56); Albumin, Serum 4.1 g/dL (3.2-5.0); Alkaline Phosphatase 45 U/L (45-117); Anion Gap 5 (5-15); BUN 8 mg/dL (7-18); Chloride 108 mmol/L (98-107); Creatinine, Serum 0.89 mg/dL (0.55-1.02); EST Glomerular Filtration Rate 71 mL/min (>60); Est Glom Filt Rate - Afr Amer 86 mL/min (>60); Globulin 3.7 g/dL (2.2-4.2); Glucose 96 mg/dL (74-106); Potassium 3.6 mmol/L (3.5-5.1); Protein, Total 7.8 g/dL (6.4-8.2); Sodium Level 139 mmol/L (136-145); Thyroid Stim Hormone (TSH) 1.49 uIU/mL (0.358-3.74)
[2023-11-01 18:39] LABS: Vitamin B12 303 pg/mL (211-911); Vitamin D,25 Hydroxy 28.3 ng/mL
[2023-11-01 19:12] LABS: Erythrocyte Sedimentation Rate 6 mm/hr (0-30)
== END | disposition home or self-care (01) ==
LOC: LAB 17:28
PROVIDERS: PCP Family Medicine; Referring Provider Physician Assistant; Visit Provider Physician Assistant
DX: R42 Dizziness and giddiness (principal); E56.9 Vitamin deficiency, unspecified
CPT/HCPCS: 36415; 80053; 82306; 82607; 84443; 85025; 85652

== ENCOUNTER → 2023-11-03 | Outpatient (CLI) | payer OTHER, SELFPAY ==
--- NOTE | 2023-11-03 16:59 | CT_ITS ---
STUDY: CT BRAIN WITHOUT CONTRAST REASON FOR EXAM: Female, 53 years old. Dizziness RADIATION DOSAGE (If Supplied By Facility): CTDIvol = ( 44.99 ) mGy, DLP = ( 745.49 ) mGycm TECHNIQUE: Transaxial CT imaging of the brain was performed without administration of intravenous contrast material. Individualized dose optimization techniques were used for this CT. COMPARISON: No relevant priors. FINDINGS: Normal soft tissue structures. Normal calvarium. Normal size ventricles and extra-axial spaces for the patient''s age. Normal white matter tracts of the cerebral hemispheres. Normal basal ganglia and thalami. Normal brainstem. Normal cerebellum. There is no intracranial hemorrhage. There are no findings of an acute ischemic infarction. Normal visualized paranasal sinuses. CT/Brain/Head without Contrast IMPRESSION: Normal unenhanced CT scan of the brain. Electronically Signed: Alpesh Ruvalcaba DO at 17:32 EDT ,
== END | disposition home or self-care (01) ==
LOC: CT 16:58
PROVIDERS: PCP Family Medicine; Referring Provider Physician Assistant; Visit Provider Physician Assistant
DX: R42 Dizziness and giddiness (principal)
CPT/HCPCS: 70450